=== PATIENT | male | born 1945 | race Two or more races ===

== ENCOUNTER 2023-05-23 22:14 | Inpatient (IN) | payer OTHER ==
[~2023-05-23] VITALS: Ht 167.6 cm; Wt 72.0 kg
[2023-05-23 23:02] LABS: Basophils # (auto) 0 10 ^3/uL (0-0.2); Eosinophils # (auto) 0 10 ^3/uL (0-0.8); Hemoglobin 14.1 g/dL (13.5-17.5); Lymphocytes # (auto) 0.2 10 ^3/uL (0.4-5.4); Mean Corpuscular Hemoglobin 25.9 pg (28.0-32.0); Monocytes # (auto) 0.2 10 ^3/uL (0-1.3); Red Blood Cells 5.44 10^6/uL (4.5-5.90)
[2023-05-23 23:15] VITALS: PULSE 90; RESP 33; O2SAT 93
[2023-05-23 23:15] LABS: Basophils % (auto) 0.3 % (0.0-2.0); Eosinophils % (auto) 0.2 % (0.0-7.0); Hematocrit 43.8 % (41.0-53.0); Lymphocytes % (auto) 2.2 % (10.0-50.0); Mean Corpuscular Hgb Conc. 32.2 g/dL (32.0-36.0); Mean Corpuscular Volume 80.5 fL (80.0-100.0); Monocytes % (auto) 2.5 % (0.0-12.0); Neutrophils # (auto) 8.1 10 ^3/uL (1.6-8.6); Neutrophils % (auto) 94.8 % (37.0-80.0); Red Cell Distribution Width 15.5 % (11.8-14.3); White Blood Cell 8.5 10^3/uL (4.4-10.8)
[2023-05-23 23:16] LABS: INR 1.07 (0.9-1.15); Partial Thromboplastin Time 25.5 SEC (24.5-34.5)
[2023-05-23 23:20] LABS: Albumin 3.5 g/dL (3.4-5.0); Calcium 8.9 mg/dL (8.5-10.1); Potassium 4.1 mmol/L (3.5-5.1)
[2023-05-23 23:28] LABS: BUN/Creatinine Ratio 15.4 (10.0-20.0); Bilirubin, Total 2.2 mg/dL (0.2-1.0); Total Protein 6.1 g/dL (6.4-8.2)
[2023-05-23 23:31] LABS: Lactic Acid w/Reflex 2.2 mmol/L (0.4-2.0)
[2023-05-24] MEDS ORDERED: VANCOMYCIN 1GM/250ML 250 ML IV ONE ×2 (00:30→17:00)
[2023-05-24] MEDS ORDERED: PIPERACILLIN-TAZOB 3.375GM 100 ML IV ONE (00:30)
[2023-05-24] MEDS ORDERED: SODIUM CHLORIDE 0.9% IV ONE (00:45)
[2023-05-24 03:38] LABS: Urine Bacteria FEW /hpf (None Seen); Urine Blood Negative /uL (Negative); Urine Specific Gravity 1.009 (1.001-1.035); Urine WBC 12 /hpf (0 - 3)
[2023-05-24 08:53] VITALS: PULSE 94; RESP 33; O2SAT 95
[2023-05-24] MEDS: PIPERACILLIN-TAZOB 3.375GM 100 ML IV SCH ×2 (12:45→22:20)
[2023-05-24] MEDS ORDERED: ACETYLCYSTEINE 200MG/ML IV SOL 10,900 MG in D5W 5% 250 ML IV ONE (12:45)
[2023-05-24] MEDS ORDERED: LACTATED RINGER'S 1,000 ML IV ONE (12:45)
[2023-05-24] MEDS ORDERED: ONDANSETRON HCL 4 MG/2 ML VIAL IV PRN (13:30)
[2023-05-24] MEDS ORDERED: DOCUSATE SOD 100 MG CAP PO PRN (13:30)
[2023-05-24] MEDS ORDERED: ACETYLCYSTEINE 200MG/ML IV SOL 3,600 MG in D5W 5% 500 ML IV ONE (13:45)
[2023-05-24] MEDS: SODIUM CHLOR 0.9% PF (SALINE LOCK) 10ML VIAL/SYR IV SCH ×2 (14:00→22:20)
[2023-05-24 14:16] LABS: Sodium Urine 19 mmol/L (40-220)
[2023-05-24 14:18] LABS: Creatinine, Urine 56 mg/dL (30.0-125.0)
[2023-05-24] MEDS ORDERED: VANCOMYCIN PER PHARMACY 0 MG IV SCH (14:45)
[2023-05-24 14:49] LABS: Basophils # (auto) 0 10 ^3/uL (0-0.2); Basophils % (auto) 0.2 % (0.0-2.0); Eosinophils # (auto) 0.1 10 ^3/uL (0-0.8); Eosinophils % (auto) 0.6 % (0.0-7.0); Hematocrit 40.3 % (41.0-53.0); Hemoglobin 12.8 g/dL (13.5-17.5); Lymphocytes # (auto) 0.8 10 ^3/uL (0.4-5.4); Lymphocytes % (auto) 7.2 % (10.0-50.0); Mean Corpuscular Hemoglobin 25.5 pg (28.0-32.0); Mean Corpuscular Hgb Conc. 31.8 g/dL (32.0-36.0); Monocytes # (auto) 0.7 10 ^3/uL (0-1.3); Monocytes % (auto) 6.1 % (0.0-12.0); Neutrophils # (auto) 9.4 10 ^3/uL (1.6-8.6); Neutrophils % (auto) 85.9 % (37.0-80.0); Red Blood Cells 5.04 10^6/uL (4.5-5.90); Red Cell Distribution Width 16.2 % (11.8-14.3)
[2023-05-24 15:06] LABS: Salicylate < 1.7 mg/dL (2.8-20.0)
[2023-05-24 15:18] LABS: Acetaminophen < 2.0 ug/mL (10-30)
[2023-05-24] MEDS ORDERED: ACETYLCYSTEINE 200MG/ML IV SOL 7,300 MG in D5W 5% 1,000 ML IV SCH ×2 (17:45→18:30)
[2023-05-24 19:15] VITALS: PULSE 67; RESP 16; O2SAT 99
[2023-05-24] MEDS: HYDROmorphone HCL 2 MG/ML VL/or syr IV PRN (19:55)
[2023-05-24 22:00] VITALS: BP 149/76; PULSE 73; RESP 12; O2SAT 96
[2023-05-24 22:06] VITALS: BP 158/81; PULSE 74; RESP 20; TEMP 97.8; TEMP 98.1; O2SAT 96
[2023-05-25] VITALS (33 sets, daily range): BP systolic 132–172; BP diastolic 71–128; PULSE 67–103; RESP 10–22; TEMP 97.3–98.3; O2SAT 85–98
[2023-05-25 04:59] LABS: Basophils # (auto) 0 10 ^3/uL (0-0.2); Eosinophils # (auto) 0.2 10 ^3/uL (0-0.8); Eosinophils % (auto) 2.2 % (0.0-7.0); Hematocrit 39.1 % (41.0-53.0); Hemoglobin 12.7 g/dL (13.5-17.5); Lymphocytes # (auto) 0.5 10 ^3/uL (0.4-5.4); Lymphocytes % (auto) 5.5 % (10.0-50.0); Mean Corpuscular Hgb Conc. 32.4 g/dL (32.0-36.0); Monocytes # (auto) 0.8 10 ^3/uL (0-1.3); Monocytes % (auto) 7.9 % (0.0-12.0); Neutrophils # (auto) 8.1 10 ^3/uL (1.6-8.6); Red Blood Cells 4.88 10^6/uL (4.5-5.90)
[2023-05-25 05:01] LABS: Basophils % (auto) 0.3 % (0.0-2.0); Mean Corpuscular Volume 80.2 fL (80.0-100.0); Neutrophils % (auto) 84.1 % (37.0-80.0); Nucleated Red Blood Cells % 0.1 %; Red Cell Distribution Width 15.6 % (11.8-14.3); White Blood Cell 9.6 10^3/uL (4.4-10.8)
[2023-05-25] MEDS: SODIUM CHLOR 0.9% PF (SALINE LOCK) 10ML VIAL/SYR IV SCH ×3 (05:06→22:05)
[2023-05-25 05:11] LABS: Albumin 2.6 g/dL (3.4-5.0); Potassium 4.1 mmol/L (3.5-5.1)
[2023-05-25 05:15] LABS: Bilirubin, Total 1.7 mg/dL (0.2-1.0); Total Protein 5.3 g/dL (6.4-8.2)
[2023-05-25] MEDS: PIPERACILLIN-TAZOB 3.375GM 100 ML IV SCH ×2 (08:36→22:13)
[2023-05-25] MEDS ORDERED: ENAL1TAB42 PO (09:37)
[2023-05-25] MEDS ORDERED: IBUP-1456 PO (09:37)
[2023-05-25] MEDS ORDERED: TAMS0.4C36 PO (09:37)
[2023-05-25] MEDS ORDERED: ASPI-543 PO (09:37)
[2023-05-25] MEDS ORDERED: AMLO1TAB22 PO (09:37)
[2023-05-25] MEDS ORDERED: ATOR20TA50 PO (09:37)
[2023-05-25] MEDS ORDERED: GABA-1250 PO (09:37)
[2023-05-25] MEDS ORDERED: amLODIPine BESYLATE 5 MG TAB PO ONE (14:15)
[2023-05-25] MEDS ORDERED: hydrALAZINE HCL 20 MG/ML VL IV PRN (16:15)
[2023-05-25] MEDS: TAMSULOSIN HYDROCHLORIDE 0.4 MG CAP PO SCH (16:57)
[2023-05-25 17:15] LABS: Alcohol, Urine < 3.0 mg/dL (0-10); Amphetamine Screen, Urine NEGATIVE (NEGATIVE); Barbiturate Scree,Urine NEGATIVE (NEGATIVE); Benzodiazephine Screen, Urine NEGATIVE (NEGATIVE); Cannabinoid Screen, Urine NEGATIVE (NEGATIVE); Cocaine Screen, Urine NEGATIVE (NEGATIVE); Opiate Scree,Urine NEGATIVE (NEGATIVE); Phencyclidine Screen, Urine NEGATIVE (NEGATIVE)
[2023-05-25 18:07] LABS: Folate (Folic Acid) 22.02 ng/mL (5.38-24)
[2023-05-25] MEDS: ENALAPRIL MALEATE 10 MG TAB PO SCH (22:00)
[2023-05-26] VITALS (39 sets, daily range): BP systolic 139–152; BP diastolic 76–93; PULSE 67–101; RESP 8–29; TEMP 97.7–98.8; O2SAT 89–99
[2023-05-26] MEDS: HYDROmorphone HCL 2 MG/ML VL/or syr IV PRN ×2 (00:24→22:13)
[2023-05-26 05:12] LABS: Albumin 3.1 g/dL (3.4-5.0); Calcium 9.4 mg/dL (8.5-10.1)
[2023-05-26 05:17] LABS: BUN/Creatinine Ratio 12.5 (10.0-20.0)
[2023-05-26 05:29] LABS: Basophils # (auto) 0 10 ^3/uL (0-0.2); Basophils % (auto) 0.4 % (0.0-2.0); Eosinophils # (auto) 0.2 10 ^3/uL (0-0.8); Eosinophils % (auto) 2.2 % (0.0-7.0); Hematocrit 39.1 % (41.0-53.0); Hemoglobin 12.8 g/dL (13.5-17.5); Lymphocytes # (auto) 0.8 10 ^3/uL (0.4-5.4); Mean Corpuscular Hemoglobin 25.7 pg (28.0-32.0); Mean Corpuscular Hgb Conc. 32.8 g/dL (32.0-36.0); Mean Corpuscular Volume 78.4 fL (80.0-100.0); Monocytes # (auto) 0.6 10 ^3/uL (0-1.3); Neutrophils # (auto) 6.6 10 ^3/uL (1.6-8.6); Neutrophils % (auto) 80.4 % (37.0-80.0); Red Blood Cells 4.99 10^6/uL (4.5-5.90); Red Cell Distribution Width 15.4 % (11.8-14.3); White Blood Cell 8.2 10^3/uL (4.4-10.8)
[2023-05-26] MEDS: SODIUM CHLOR 0.9% PF (SALINE LOCK) 10ML VIAL/SYR IV SCH ×3 (06:00→22:14)
[2023-05-26] MEDS: amLODIPine BESYLATE 5 MG TAB PO SCH (08:32)
[2023-05-26] MEDS: PIPERACILLIN-TAZOB 3.375GM 100 ML IV SCH ×2 (08:32→22:15)
[2023-05-26] MEDS: ENALAPRIL MALEATE 10 MG TAB PO SCH ×2 (08:33→22:15)
[2023-05-26] MEDS ORDERED: GABA-1251 PO (15:00)
[2023-05-26] MEDS: TAMSULOSIN HYDROCHLORIDE 0.4 MG CAP PO SCH (18:08)
[2023-05-27 05:00] VITALS: BP 158/82; PULSE 77; RESP 12; TEMP 98.1; O2SAT 94
[2023-05-27] MEDS: SODIUM CHLOR 0.9% PF (SALINE LOCK) 10ML VIAL/SYR IV SCH ×2 (06:10→13:47)
[2023-05-27 07:19] LABS: Albumin 2.8 g/dL (3.4-5.0)
[2023-05-27 07:31] LABS: Bilirubin, Direct 0.4 mg/dL (0-0.2); Bilirubin, Total 0.8 mg/dL (0.2-1.0); Total Protein 6.1 g/dL (6.4-8.2)
[2023-05-27 08:00] VITALS: PULSE 65; PULSE 84; RESP 17; O2SAT 92
[2023-05-27 08:06] LABS: RPR Non Reactive (Non Reactive)
[2023-05-27 09:00] VITALS: BP 132/76; PULSE 84; RESP 17; TEMP 97.7; O2SAT 92
[2023-05-27 09:46] LABS: Hepatitis B Surface Antibody Negative (Negative)
[2023-05-27 10:13] LABS: Hepatitis A Total Antibody Positive (Negative)
[2023-05-27] MEDS: PIPERACILLIN-TAZOB 3.375GM 100 ML IV SCH (10:26)
[2023-05-27] MEDS: amLODIPine BESYLATE 5 MG TAB PO SCH (10:27)
[2023-05-27] MEDS: ENALAPRIL MALEATE 10 MG TAB PO SCH (10:27)
[2023-05-27 11:30] LABS: Hepatitis A Ab IgM Negative
[2023-05-27 11:31] LABS: Hepatitis B Core IgM Negative; Hepatitis C Antibody Negative (Negative)
== END 2023-05-27 14:31 | disposition home or self-care (01) | DRG 442 ==
LOC: ER 22:20 → TELE 05-24 13:36 → DOU IN ICU 05-24 21:46 → TELE-WESTW 05-26 13:59
PROVIDERS: ADMIT Hospitalist; ATTEND Hospitalist
DX: K72.90 Hepatic failure, unspecified without coma (principal); N17.9 Acute kidney failure, unspecified; R78.81 Bacteremia; Z85.72 Personal history of non-Hodgkin lymphomas; K80.20 Calculus of gallbladder without cholecystitis without obstruction; I10 Essential (primary) hypertension; T39.395A Adverse effect of other nonsteroidal anti-inflammatory drugs [NSAID], initial encounter; R60.9 Edema, unspecified; Z96.653 Presence of artificial knee joint, bilateral; R74.01 Elevation of levels of liver transaminase levels; B96.20 Unspecified Escherichia coli [E. coli] as the cause of diseases classified elsewhere; E78.5 Hyperlipidemia, unspecified; R74.8 Abnormal levels of other serum enzymes; E11.9 Type 2 diabetes mellitus without complications; Y92.89 Other specified places as the place of occurrence of the external cause; Z92.21 Personal history of antineoplastic chemotherapy; Z87.891 Personal history of nicotine dependence
CPT/HCPCS: 36415; 70551; 71045; 74178; 76705; 78226; 80053; 80074; 80076; 80202; 80307; 80329; 81001; 82550; 82570; 82607; 82728; 82746; 83605; 83690; 83880; 84300; 84484; 85025; 85610; 85730; 86038; 86592; 86704; 86706; 86708; 86803; 87040; 87077; 87081; 87186; 87340; 93306; 96365; 96366; 96367; 97110; 97116; 97163; G0378; J2405; J2543; J7060

== ENCOUNTER 2024-04-13 12:23 | Inpatient (IN) | payer OTHER ==
[~2024-04-13] VITALS: Ht 170.2 cm; Wt 71.8 kg
[~2024-04-13 12:23] MED LIST: AMLO1TAB22 PO; ATOR20TA PO; CEFD300C2 PO; ENAL1TAB48 PO; IBUP-1456 PO; PREG50CA80 PO; PROC10TA6 PO; TAMS0.4C36 PO
[2024-04-13 13:30] VITALS: PULSE 88; RESP 26; O2SAT 94
[2024-04-13] MEDS: FUROSEMIDE 100 MG/10ML VIAL IV ONE (13:55)
[2024-04-13 14:12] LABS: Basophils # (auto) 0.1 10 ^3/uL (0-0.2); Basophils % (auto) 0.7 % (0.0-2.0); Eosinophils # (auto) 0.2 10 ^3/uL (0-0.8); Eosinophils % (auto) 1.9 % (0.0-7.0); Hematocrit 35.1 % (41.0-53.0); Hemoglobin 11.1 g/dL (13.5-17.5); Lymphocytes # (auto) 0.7 10 ^3/uL (0.4-5.4); Lymphocytes % (auto) 6.9 % (10.0-50.0); Mean Corpuscular Hemoglobin 27.1 pg (28.0-32.0); Mean Corpuscular Hgb Conc. 31.6 g/dL (32.0-36.0); Mean Corpuscular Volume 85.7 fL (80.0-100.0); Monocytes # (auto) 0.3 10 ^3/uL (0-1.3); Monocytes % (auto) 2.8 % (0.0-12.0); Neutrophils # (auto) 8.3 10 ^3/uL (1.6-8.6); Neutrophils % (auto) 87.7 % (37.0-80.0); Red Blood Cells 4.09 10^6/uL (4.5-5.90); Red Cell Distribution Width 16.9 % (11.8-14.3); White Blood Cell 9.5 10^3/uL (4.4-10.8)
[2024-04-13 14:26] LABS: Urine Bacteria None Seen /hpf (None Seen)
[2024-04-13 14:30] LABS: Alanine Aminotransferase 14 U/L (7-40); Alkaline Phosphatase 104 U/L (46-116); Anion Gap 2 (5-15); Aspartate Aminotransferase 12 U/L (13-40); BUN/Creatinine Ratio 13.6 (10.0-20.0); Blood Urea Nitrogen 11 mg/dL (9-23); Calcium 9.2 mg/dL (8.5-10.1); Carbon Dioxide 35 mmol/L (20-30); Chloride 104 mmol/L (98-107); Glucose 109 mg/dL (74-106); Potassium 4.1 mmol/L (3.5-5.1); Sodium 141 mmol/L (136-145)
[2024-04-13 14:31] LABS: Albumin 3.8 g/dL (3.2-4.8); Bilirubin, Total 0.7 mg/dL (0.2-1.0); Total Protein 5.3 g/dL (5.7-8.2)
[2024-04-13 14:49] LABS: Urine Blood Negative /uL (Negative); Urine Clarity Clear (Clear); Urine Color Yellow (Yellow); Urine Protein, UAD Negative (Negative); Urine Specific Gravity 1.008 (1.001-1.035); Urine Urobilinogen Normal (Negative); Urine WBC <1 /hpf (0 - 3); Urine pH 6.5 (5.0-9.0)
[2024-04-13] MEDS ORDERED: MORPHINE SULFATE INJ 2 MG/ml SYRG IV PRN ×2 (15:30)
[2024-04-13] MEDS ORDERED: ONDANSETRON HCL 4 MG/2 ML VIAL IV PRN (15:30)
[2024-04-13] MEDS ORDERED: ACETAMINOPHEN 325 MG TAB PO PRN (15:30)
[2024-04-13] MEDS ORDERED: NITROGLYCERIN 0.4 MG SL TAB SL PRN (15:30)
[2024-04-13] MEDS ORDERED: HYDROcodone-ACET 5/325MG TAB PO PRN (15:30)
[2024-04-13] MEDS ORDERED: DOCUSATE SOD 100 MG CAP PO PRN (15:30)
[2024-04-13] MEDS ORDERED: FURO20TA3 PO (17:44)
[2024-04-13] MEDS ORDERED: CARV3.1240 PO (17:44)
[2024-04-13] MEDS ORDERED: SACU1TAB PO (17:44)
[2024-04-13] MEDS: TAMSULOSIN HYDROCHLORIDE 0.4 MG CAP PO ONE (18:48)
[2024-04-13 20:13] VITALS: PULSE 97; RESP 22; O2SAT 94
[2024-04-13 22:37] VITALS: PULSE 90
[2024-04-14] VITALS (7 sets, daily range): BP systolic 112–140; BP diastolic 73–81; PULSE 75–98; RESP 15–19; TEMP 97.6–98.3; O2SAT 91–98
[2024-04-14] MEDS: FUROSEMIDE 40 MG/4 ML VIAL IV SCH (05:17)
[2024-04-14 08:37] LABS: Basophils # (auto) 0 10 ^3/uL (0-0.2); Basophils % (auto) 0.8 % (0.0-2.0); Eosinophils # (auto) 0.1 10 ^3/uL (0-0.8); Hemoglobin 10.9 g/dL (13.5-17.5); Lymphocytes # (auto) 0.6 10 ^3/uL (0.4-5.4); Lymphocytes % (auto) 9.6 % (10.0-50.0); Mean Corpuscular Hemoglobin 27.4 pg (28.0-32.0); Mean Corpuscular Hgb Conc. 32.2 g/dL (32.0-36.0); Mean Corpuscular Volume 85.1 fL (80.0-100.0); Monocytes # (auto) 0.3 10 ^3/uL (0-1.3); Monocytes % (auto) 4.9 % (0.0-12.0); Neutrophils % (auto) 82.7 % (37.0-80.0); Red Blood Cells 3.99 10^6/uL (4.5-5.90); Red Cell Distribution Width 16.5 % (11.8-14.3)
[2024-04-14 08:56] LABS: Alanine Aminotransferase 13 U/L (7-40); Albumin 3.7 g/dL (3.2-4.8); Alkaline Phosphatase 99 U/L (46-116); Anion Gap 3 (5-15); Aspartate Aminotransferase 11 U/L (13-40); BUN/Creatinine Ratio 12.8 (10.0-20.0); Bilirubin, Total 0.9 mg/dL (0.2-1.0); Blood Urea Nitrogen 12 mg/dL (9-23); Calcium 9.3 mg/dL (8.5-10.1); Carbon Dioxide 38 mmol/L (20-30); Chloride 101 mmol/L (98-107); Glucose 99 mg/dL (74-106); Potassium 3.7 mmol/L (3.5-5.1); Sodium 142 mmol/L (136-145); Total Protein 5.1 g/dL (5.7-8.2)
[2024-04-14] MEDS: ENOXAPARIN SOD 40 MG/0.4 ML SYRINGE SC SCH (10:00)
[2024-04-14] MEDS: metOLazone 5 MG TAB PO ONE (14:08)
[2024-04-14 15:18] LABS: INR 1.09 (0.9-1.15); Prothrombin Time 11.5 sec (9.3-11.8)
[2024-04-14] MEDS: TAMSULOSIN HYDROCHLORIDE 0.4 MG CAP PO SCH (17:13)
[2024-04-14] MEDS: Ensure HIGH Protein Vanilla 8oz Bottle PO SCH (18:00)
[2024-04-14] MEDS: SACUBITRIL-VALSARTAN 24mg/26mg TAB PO SCH (21:48)
[2024-04-14] MEDS: CARVEDILOL 3.125 MG TAB PO SCH (22:00)
[2024-04-15 01:00] VITALS: BP 123/76; PULSE 80; RESP 19; TEMP 97.8; O2SAT 94
[2024-04-15 05:00] VITALS: BP 128/73; PULSE 80; RESP 18; TEMP 97.4; O2SAT 97
[2024-04-15 08:30] VITALS: PULSE 78; PULSE 82; RESP 20
[2024-04-15 08:43] VITALS: BP 136/88; PULSE 85; RESP 19; TEMP 97.8; O2SAT 95
[2024-04-15 13:00] VITALS: BP 106/71; PULSE 69; RESP 20; TEMP 98.5; O2SAT 93
== END 2024-04-15 18:30 | disposition home health service (06) | DRG 189 ==
LOC: ER 12:25 → TELE-CENTR 15:33 → TELE 15:33 → TELE-CENTR 22:51
PROVIDERS: ADMIT Internal Medicine; ATTEND Internal Medicine
DX: J96.21 Acute and chronic respiratory failure with hypoxia (principal); I50.23 Acute on chronic systolic (congestive) heart failure; I11.0 Hypertensive heart disease with heart failure; E78.5 Hyperlipidemia, unspecified; G62.9 Polyneuropathy, unspecified; J44.9 Chronic obstructive pulmonary disease, unspecified; N40.0 Benign prostatic hyperplasia without lower urinary tract symptoms; Z96.659 Presence of unspecified artificial knee joint; Z87.891 Personal history of nicotine dependence; Z85.72 Personal history of non-Hodgkin lymphomas; Z79.899 Other long term (current) drug therapy
CPT/HCPCS: 36415; 71045; 80053; 81001; 83605; 83880; 84484; 85025; 85610; 93005; 96374; 97163; G0378

== ENCOUNTER 2025-02-19 02:46 | Inpatient (IN) | payer OTHER ==
[~2025-02-19] VITALS: Ht 167.6 cm; Wt 79.2 kg
[2025-02-19] VITALS (20 sets, daily range): BP systolic 91–122; BP diastolic 50–69; PULSE 60–88; RESP 10–24; TEMP 98–100.3; O2SAT 92–100
[~2025-02-19 02:46] MED LIST changes: +CARV3.1240 PO; -CEFD300C2 PO; +FURO1TAB77 PO; +FURO20TA3 PO; +IBUP-1454 PO; -IBUP-1456 PO; +OMEP1CAP70 PO; -PROC10TA6 PO; +SACU1TAB PO; -TAMS0.4C36 PO; +TAMS0.4C39 PO
--- NOTE | 2025-02-19 03:07 | ED.PDOC ---
History of Present Illness HPI Comments 79 y/o M, with a history of Hodgkin lymphoma, cardiomyopathy w/EF 35%, CHF, BPH, HLD, HTN, and peripheral neuropathy, is BIBA for c/o generalized weakness and ALOC. Per EMS report, patient's spouse called after finding patient altered, this morning, after endorsing on being weak for the past 2 days alongside a productive cough. Sputum was stated to be yellow in appearance. On scene, patient was found with a initial SpO2 in the 80's range, while on 2LPM O2 concentrator, with diminished lung sounds, tachycardic, and hypotensive, with a systolic pressure in the low 80's. En route, patient was given breathing treatment and IV fluids. He has no reported chest pain, fever, chills, bloody sp utum, or other associated symptoms at this time. Time Seen by MD: 02:54 Primary Care Provider: NATE Reviewed Notes: Nurses Notes, Capacity Analyst Notes, Medications, Allergies Allergies: Coded Allergies: NO KNOWN ALLERGIES (Unverified , 05/23/23) Home Meds Reported Medications Furosemide (Furosemide) 20 Mg Tab, 1 TAB PO DAILY 04/13/24 Carvedilol (Carvedilol) 3.125 Mg Tab, 1 TAB PO Q12HR 04/13/24 Sacubitril-Valsartan (Entresto 24-26 mg) 1 Tab Tab, 1 TAB PO Q12HR 04/13/24 Atorvastatin Calcium (Lipitor) 20 Mg Tab, 1 TAB PO DAILY 01/28/24 Pregabalin (Pregabalin) 50 Mg Cap, 1 CAP PO BID 01/28/24 Enalapril Maleate (Enalapril Maleate) 20 Mg Tab, 1 TAB PO BID 01/28/24 Amlodipine Besylate (Amlodipine Besylate) 5 Mg Tab, 10 MG PO DAILY for 30 Days, MG 05/25/23 Tamsulosin Hcl (Tamsulosin Hcl) 0.4 Mg Cap, 2 CAP PO HS 05/25/23 Information Source: Patient, Emergency Med Personnel Mode of Arrival: EMS Severity: Moderate Timing: Days Duration: Since onset Prehospital treatment: 12 Lead EKG, Accucheck, Breathing Tx, Band Instrument Maker, IVF, Oxygen Past Medical History PAST MEDICAL HISTORY: Cancer (Hodgkin lymphoma), CHF, High Lipids, HTN Past Medical History (Other): cardiomyopathy w/EF 35% peripheral neuropathy BPH 2LPM O2 use Surgical History: Denies all surgeries Family History Family History: Reviewed,noncontributory to illness Social History Smoker: Non-Smoker Alcohol: Denies ETOH Use Drugs: Denies Drug Use Lives In: Home All Other Systems: Reviewed and Negative (as per HPI) Physical Exam General Appearance: No Apparent Distress, Thin, Other (elderly, frail appearing ) HEENT: Normal ENT Inspection, Pharynx Normal, TMs Normal Neck: Full Range of Motion, Non-Tender, Normal, Normal Inspection Respiratory: Chest Non-Tender, Lungs Clear, No Accessory Muscle Use, No Respiratory Distress, Normal Breath Sounds Cardiovascular: No Edema, No JVD, No Murmur, No Gallop, Normal Peripheral Pulses, Regular Rate/Rhythm Breast Exam: Deferred Gastrointestinal: No Organomegaly, Non Tender, No Pulsatile Mass, Normal Bowel Sounds, Soft Genitalia: Deferred Pelvic: Deferred Rectal: Deferred Extremities: No calf tenderness, Normal capillary refill, Normal inspection, Normal range of motion, Non-tender, No pedal edema Musculoskeletal : Apperance: Normal Neurologic: Alert, label paster II-XII nml as Tested, No Motor Deficits, Normal Affect, Normal Mood, No Sensory Deficits Cerebellar Function: Normal Reflexes: Normal Skin: Dry, Normal Color, Warm Lymphatic: No Adenopathy Was a procedure done? Was a procedure done?: No EKG EKG : Pulse Rate (adult): 102 Neal: Normal Cardiac Rhythm: ST Hypertrophy: None ST: Normal Comments left-anterior fascicular block Differential Dx Considerations may include: Viral syndrome, electrolyte imbalance, dehydration, URI, UTI, encephalopathy, among others X-Ray, Labs, Meds, VS Vital Signs Date Time Temp Pulse Resp B/P (MAP) Pulse Ox O2 Delivery O2 Flow Rate FiO2 02/19/25 03:07 102 02/19/25 02:57 100.3 104 26 98/60 (73) 97 100.3 02/19/25 02:51 102 Lab Test 02/19/25 03:00 Range/Units White Blood Count 4.4 4.4-10.8 10^3/uL Red Blood Count 4.27 L 4.5-5.90 10^6/uL Hemoglobin 11.5 L 13.5-17.5 g/dL Hematocrit 34.9 L 41.0-53.0 % Mean Corpuscular Volume 81.8 80.0-100.0 fL Mean Corpuscular Hemoglobin 27.0 L 28.0-32.0 pg Mean Corpuscular Hemoglobin Concent 33.0 32.0-36.0 g/dL Red Cell Distribution Width 15.5 H 11.8-14.3 % Platelet Count 83 L 140-450 10^3/uL Mean Platelet Volume 8.6 6.9-10.8 fL Neutrophils (%) (Auto) 73.1 37.0-80.0 % Lymphocytes (%) (Auto) 15.8 10.0-50.0 % Monocytes (%) (Auto) 10.9 0.0-12.0 % Eosinophils (%) (Auto) 0.1 0.0-7.0 % Basophils (%) (Auto) 0.1 0.0-2.0 % Neutrophils # (Auto) 3.3 1.6-8.6 10 ^3/uL Lymphocytes # (Auto) 0.7 0.4-5.4 10 ^3/uL Monocytes # (Auto) 0.5 0-1.3 10 ^3/uL Eosinophils # (Auto) 0 0-0.8 10 ^3/uL Basophils # (Auto) 0 0-0.2 10 ^3/uL Nucleated Red Blood Cells 0.0 % Prothrombin Time 11.0 9.3-11.8 sec Prothrombin Time INR 1.04 0.9-1.15 Activated Partial Thromboplast Time 33.2 24.5-34.5 SEC Sodium Level 137 136-145 mmol/L Potassium Level 3.3 L 3.5-5.1 mmol/L Chloride Level 100 98-107 mmol/L Carbon Dioxide Level 24 20-31 mmol/L Anion Gap 13 5-15 Blood Urea Nitrogen 62 H 9-23 mg/dL Creatinine 3.44 H 0.700-1.30 mg/dL Glomerular Filtration Rate Calc 17 >90 mL/min BUN/Creatinine Ratio 18.0 10.0-20.0 Serum Glucose 255 H 74-106 mg/dL Lactic Acid Level 1.5 0.4-2.0 mmol/L Calcium Level 8.7 8.7-10.4 mg/dL Total Bilirubin 1.0 0.2-1.0 mg/dL Aspartate Amino Transferase (AST) 13 13-40 U/L Alanine Aminotransferase (ALT) 12 7-40 U/L Alkaline Phosphatase 79 46-116 U/L B-Type Natriuretic Peptide 377.03 0-100 pg/mL Total Protein 5.7 5.7-8.2 g/dL Albumin 3.9 3.2-4.8 g/dL Current Medications Medications (Trade) Dose Ordered Sig/Naomi Route Start Time Stop Time Status Last Admin Sodium Chloride 1,000 ml @ 1,000 mls/hr Q1H ONCE IV 02/19/25 03:15 02/19/25 04:14 DC 02/19/25 03:15 [place] [id number] Ph: [phone] DIAGNOSTIC IMAGING Diagnostic Imaging Report : [id number] Signed PATIENT: VASILE DENISE ACCT: [id number] UNIT: [id number] : 1945 LOC: ER ROOM / BED: / AGE / SEX: 79 / M ADM STATUS: REG ER SERVICE 0301 ORDERING PHYSICIAN: ANTONELLA BRADLEY MD PROCEDURE(s): CXRP - CHEST PORTABLE REASON: SOB ORDER NUMBER(s): [id number], ACCESSION NUMBER(s): [id number] CHEST RADIOGRAPH Indication: SOB Technique: Single frontal view of the chest was obtained Comparison: XY CHEST PORTABLE on DOS: 04/13/24 FINDINGS: Lines and Tubes: Right infusion catheter is present with its tip terminating in the superior vena cava. Lungs: Right upper lobe consolidation noted. Pleura: No effusion. No pneumothorax. Cardiomediastinal contours: Cardiomegaly. Bones: No acute osseous abnormality. IMPRESSION: 1. Right upper lobe consolidation which may reflect pneumonia or mass. ATED BY: ROOPA LAUGHLIN MD DICTATED DATE/TIME: 02/19/25436 SIGNED BY: ROOPA LAUGHLIN MD SIGNED DATE/TIME: 02/19/25436 CC: Time of 1ST Reevaluation: 03:24 Reevaluation 1ST: Unchanged Patient Education/Counseling: Diagnosis, Treatment Family Education/Counseling: No Family Present Sepsis focused exam: focus exam completed (In the initial resuscitation at least 30 mL/kg of IV crystalloid fluid was NOT given within the first 3 hr due to concerns of fluid overload), time: (399) Sepsis Sepsis Reasesment Focused Exam Sepsis focused exam: focus exam completed (In the initial resuscitation at least 30 mL/kg of IV crystalloid fluid was NOT given within the first 3 hr due to concerns of fluid overload), time: (399) Departure 1 Departure Time of Disposition: 04:51 Impression: Primary Impression: Acute kidney injury Additional Impressions: History of cancer Pneumonia Disposition: ADMITTED INPATIENT Admit to: Med Surg Condition: Guarded Discharged With: Self Comments 79-year-old Male with Dyspnea and Weakness Chief Complaint: Generalized weakness and shortness of breath History of Present Illness: Patient is a 79-year-old male with history of Hodgkin's lymphoma, cardiomyopat hy, CHF, and hypertension who presents to the ED via EMS with complaints of generalized weakness and dyspnea with exertion for the past two days. EMS found patient to be hypoxic with oxygen saturation of 80% on room air, requiring supplemental oxygen support. Despite the hypoxia, lung examination was noted to be clear. Review of Systems: Constitutional: Positive for generalized weakness Respiratory: Positive for dyspnea on exertion All other systems reviewed and negative Medications: No current medications documented Allergies: No known allergies documented Past Medical History: 1. Hodgkin's lymphoma 2. Cardiomyopathy 3. Congestive Heart Failure 4. Hypertension Vital Signs: O2 Saturation: 80% on room air (per EMS) Lab Results: CBC: - Hemoglobin/Hematocrit: 11.5/35 - Platelets: 83 Chemistry: - Potassium: 3.3 - BUN/Creatinine: 62/3.44 - Glucose: 255 Cardiac Markers: - BNP: 377 Imaging and Other Relevant Results: Chest X-ray: Left upper lobe infiltrate Medical Decision Making: Summary Statement: 79-year-old male with history of Hodgkin's lymphoma and cardiac disease presenting with hypoxia, weakness, and laboratory evidence of acute kidney injury, found to have left upper lobe pneumonia. Problem List: 1. Community-acquired pneumonia 2. Acute kidney injury 3. Hypoxia 4. Thrombocytopenia 5. Hypokalemia 6. Hyperglycemia Differential Diagnosis: Community-acquired pneumonia, CHF exacerbation, lymphoma progression, sepsis, acute kidney injury ED Course: Patient received IV fluids, was started on Rocephin and azithromycin for pneumonia coverage, and maintained on supplemental oxygen. Decision made to admit for further management. Assessment and Plan: 1. Community-acquired Pneumonia - Left upper lobe infiltrate on CXR with associated hypoxia - Continue Rocephin and azithromycin - Supplemental oxygen as needed 2. Acute Kidney Injury - Likely multifactorial, possibly due to infection and volume depletion - Continue IV fluids - Monitor urine output and serial creatinine 3. Thrombocytopenia - May be related to underlying lymphoma history - Will need monitoring during admission 4. Disposition: Admit to medical floor for continued management Billing Information: ICD-10: J18.9 - Pneumonia, unspecified organism ICD-10: N17.9 - Acute kidney failure, unspecified ICD-10: R06.02 - Shortness of breath ICD-10: C81.90 - Hodgkin lymphoma, unspecified, unspecified site Critical Care Note Critical Care Time?: Yes (35 min-critical care time only) Critical care comment: Total critical care time: Approximately 36 minutes Due to a high probability of clinically significant, life threatening deterioration, the patient required my highest level of preparedness to intervene emergently and I personally spent this critical care time directly and personally managing the patient. This critical care time included obtaining a history; examining the patient; pulse oximetry; ordering and review of studies; arranging urgent treatment with development of a management plan; evaluation of patient's response to treatment; frequent reassessment; and, discussions with other providers. This critical care time was performed to assess and manage the high probability of imminent, life-threatening deterioration that could result in multi-organ failure. It was exclusive of separately billable procedures and treating other patients. Stability Stability form required: No Heart Score Heart Score: Heart Score Response (Comments) Value History Moderate Suspicious 1 EKG Normal 0 Age >65 2 Risk Factors >3 or Hx ASHD 2 Troponin Normal limit 0 Total 5 I personally scribed for ANTONELLA BRADLEY MD ([email or web address]) on 02/19/25 at 03:07. Electronically submitted by Ricky Gong ([email or web address]). I personally scribed for ANTONELLA BRADLEY MD ([email or web address]) on 02/19/25 at 04:55. Electronically submitted by Ricky Gong ([email or web address]). ANTONELLA BRADLEY MD Feb 19, 2025 03:07
[2025-02-19] MEDS: SODIUM CHLORIDE 0.9% 1,000 ML IV ONE ×2 (03:15→16:45)
[2025-02-19 03:28] LABS: Basophils # (auto) 0 10 ^3/uL (0-0.2); Basophils % (auto) 0.1 % (0.0-2.0); Eosinophils # (auto) 0 10 ^3/uL (0-0.8); Eosinophils % (auto) 0.1 % (0.0-7.0); Hematocrit 34.9 % (41.0-53.0); Hemoglobin 11.5 g/dL (13.5-17.5); Lymphocytes # (auto) 0.7 10 ^3/uL (0.4-5.4); Lymphocytes % (auto) 15.8 % (10.0-50.0); Mean Corpuscular Volume 81.8 fL (80.0-100.0); Monocytes # (auto) 0.5 10 ^3/uL (0-1.3); Monocytes % (auto) 10.9 % (0.0-12.0); Neutrophils # (auto) 3.3 10 ^3/uL (1.6-8.6); Neutrophils % (auto) 73.1 % (37.0-80.0); Platelet Count (auto) 83 10^3/uL (140-450); Red Blood Cells 4.27 10^6/uL (4.5-5.90); Red Cell Distribution Width 15.5 % (11.8-14.3); White Blood Cell 4.4 10^3/uL (4.4-10.8)
[2025-02-19 03:45] LABS: Alanine Aminotransferase 12 U/L (7-40); Albumin 3.9 g/dL (3.2-4.8); Alkaline Phosphatase 79 U/L (46-116); Anion Gap 13 (5-15); Aspartate Aminotransferase 13 U/L (13-40); Calcium 8.7 mg/dL (8.7-10.4); Carbon Dioxide 24 mmol/L (20-31); Chloride 100 mmol/L (98-107); Sodium 137 mmol/L (136-145); Total Protein 5.7 g/dL (5.7-8.2)
[2025-02-19 03:47] LABS: Blood Urea Nitrogen 62 mg/dL (9-23); Glucose 255 mg/dL (74-106); Potassium 3.3 mmol/L (3.5-5.1)
[2025-02-19 03:57] LABS: INR 1.04 (0.9-1.15); Partial Thromboplastin Time 33.2 SEC (24.5-34.5)
--- NOTE | 2025-02-19 04:40 | DVH ---
CHEST RADIOGRAPH Indication: SOB Technique: Single frontal view of the chest was obtained Comparison: XY CHEST PORTABLE on DOS: 04/13/24 FINDINGS: Lines and Tubes: Right infusion catheter is present with its tip terminating in the superior vena cav a. Lungs: Right upper lobe consolidation noted. Pleura: No effusion. No pneumothorax. Cardiomediastinal contours: Cardiomegaly. Bones: No acute osseous abnormality. IMPRESSION: 1. Right upper lobe consolidation which may reflect pneumonia or mass.
[2025-02-19] MEDS: AZITHROMYCIN 500MG/ 250ML 250 ML IV ONE (05:05)
[2025-02-19] MEDS: cefTRIAXone 1GM/50ML D5W 50 ML IV ONE (05:05)
--- NOTE | 2025-02-19 05:44 | ECG ---
[facility] Test Date: 2025-02-19 Test Time: 02:51:02 Pat Name: VASILE DENISE Department: ED Room: 0231T Gender: M Manager Restaurant: ED : 1945 Requested By: ANTONELLA BRADLEY Order Number: [id number] Reading MD: Ran Mattson Measurements Intervals [place] Rate: 102 P: 44 TN: 176 QRS: -68 QRSD: 114 T: 90 QT: 311 QTc: 406 Interpretive Statements Sinus tachycardia Left anterior fascicular block Abnormal R-wave progression, late transition Nonspecific T abnormalities, lateral leads Electronically Signed On 02-21-2025 17:07:18 PDT by Ran Mattson Please click the below link to view image of tracing.
[2025-02-19] MEDS ORDERED: HYDROcodone-ACET 5/325MG TAB PO PRN (05:45)
[2025-02-19] MEDS ORDERED: ACETAMINOPHEN 325 MG TAB PO PRN (05:45)
[2025-02-19] MEDS ORDERED: SODIUM CHLORIDE 0.9% 1,000 ML IV ONE (05:45)
[2025-02-19] MEDS ORDERED: ONDANSETRON HCL 4 MG/2 ML VIAL IV PRN (05:45)
--- NOTE | 2025-02-19 06:09 | DVHHP2 ---
Admitting Diagnosis: Pneumonia, Hypoxia, CHOCO, Hypotension History of Present Illness History Source: Patient Exam Limitations: No limitations HPI Mr. Apolinar Gutierres is a 79 yo male, with a history of Hodgkin lymphoma, cardiomyopathy w/EF 35%, CHF, BPH, HLD, HTN, and peripheral neuropathy, who presents with a chief complaint of generalized weakness and ALOC. Patient reports he doesn't remember being short of breath but was told his 02 saturations were "low". Patient reports his spouse called after finding patient altered, this morning, after endorsing on being weak for the past 2 days alongside a productive cough. Sputum was stated to be yellow in appearance. Per ED notes on scene, patient was found with a initial SpO2 in the 80's range, while on 2LPM O2 concentrator, with diminished lung sounds, tachycardic, and hypotensive, with a systolic pressure in the low 80's. Patient will be admitted for further evaluation and treatment. Home Meds Reported Medications Omeprazole (Gnp Omeprazole) 20 Mg Tab, 1 TAB PO DAILY, #90 TAB 1 Refill 02/19/25 Sacubitril-Valsartan (Entresto 24-26 mg) 1 Tab Tab, 1 TAB PO BID, TAB 02/19/25 Ibuprofen (Ibuprofen) 600 Mg Tab, 600 MG PO BID, MG 0 Refills 02/19/25 Furosemide (Furosemide 80 mg) 1 Tab Tab, 1 TAB PO DAILY, TAB 02/19/25 Carvedilol (Carvedilol) 3.125 Mg Tab, 1 TAB PO Q12HR 04/13/24 Sacubitril-Valsartan (Entresto 24-26 mg) 1 Tab Tab, 1 TAB PO Q12HR 04/13/24 Atorvastatin Calcium (Lipitor) 20 Mg Tab, 1 TAB PO DAILY 01/28/24 Pregabalin (Pregabalin) 50 Mg Cap, 1 CAP PO BID 01/28/24 Enalapril Maleate (Enalapril Maleate) 20 Mg Tab, 1 TAB PO BID 01/28/24 Amlodipine Besylate (Amlodipine Besylate) 5 Mg Tab, 10 MG PO DAILY for 30 Days, MG 05/25/23 Tamsulosin Hcl (Tamsulosin Hcl) 0.4 Mg Cap, 2 CAP PO HS 05/25/23 Discontinued Reported Medications Furosemide (Furosemide) 20 Mg Tab, 1 TAB PO DAILY 04/13/24 Past Medical History Cardiac: CHF, HTN, Hyperlipidemia, Cardiomyopathy (EF 35% ) Hemotology/Oncology: Other (non hodgkins lymphoma ) Renal/: Benign prostatic enlarg. Patient Family History: Patient reports no known family medical history. Smoker: No Hx (Negative) Alocohol: None Drugs: None Lives with: With family Domestic Violence: Neg Review of Systems Constitutional: No symptom reported Ears, Nose, & Throat: No symptom reported Eyes: No symptom reported Pulmonary/Respiratory: Dyspnea, Cough Cardiovascular: No symptom reported Gastrointestinal: No symptom reported Genitourinary: No symptom reported Musculoskeletal: No symptom reported Skin: No symptom reported Psychiatric: No symptom reported Endocrine: No symptom reported Hemotologic/Lymphatic: No symptom reported H&P Exam Vital Signs Vital Signs Date Time Temp Pulse Resp B/P (MAP) Pulse Ox O2 Delivery O2 Flow Rate FiO2 02/19/25 05:48 86 20 91/54 (66) 02/19/25 03:35 90 02/19/25 02:57 100.3 100.3 General Appeara: Well developed, Well nourished, Normal Appearance Head Exam: Normal inspection Neck Exam: Normal inspection, Non-tender, Normal alignment Eye Exam: bilateral eye Normal inspection, bilateral eye PERRL, bilateral eye EOMI Ear Exam: bilateral ear Auricle normal Nasal Exam: Normal inspection Mouth: Normal Inspection Pulmonary/Respiratory: Normal inspection, Chest non-tender, Wheezing, Other (dimminished lung sounds bases) Peripheral Pulses: 2+ dorsalis pedis (R), 2+ dorsalis pedis (L), 2+ Radial (R), 2+ Radial (L) Abdominal Exam: Normal bowel sounds, Soft Rectal Exam: Deferred Back Exam: Normal inspection Legs: bilateral leg non-tender, bilateral leg normal inspection, bilateral leg normal range of motion PHYSICIAN/INTERNIST Exam: Normal hearing, Normal speech, PERRL Motor/Sensory: Normal sensory function DTR Exam: 2+ Tricep (R), 2+ Tricep (L), 2+ Knee (R), 2+ Knee (L) Neuro/Mental St: Alert, Oriented Appearance: Appropriate appearance, Appropriate insight Eye contact/ Speech: Cooperative, Good eye contact, Normal speech Thoughts/Psych: Normal thought pattern Skin Exam: Normal inspection, Normal color, Warm/dry Labs/Xrays Labs Test 02/19/25 03:00 Range/Units White Blood Count 4.4 4.4-10.8 10^3/uL Red Blood Count 4.27 L 4.5-5.90 10^6/uL Hemoglobin 11.5 L 13.5-17.5 g/dL Hematocrit 34.9 L 41.0-53.0 % Mean Corpuscular Volume 81.8 80.0-100.0 fL Mean Corpuscular Hemoglobin 27.0 L 28.0-32.0 pg Mean Corpuscular Hemoglobin Concent 33.0 32.0-36.0 g/dL Red Cell Distribution Width 15.5 H 11.8-14.3 % Platelet Count 83 L 140-450 10^3/uL Mean Platelet Volume 8.6 6.9-10.8 fL Neutrophils (%) (Auto) 73.1 37.0-80.0 % Lymphocytes (%) (Auto) 15.8 10.0-50.0 % Monocytes (%) (Auto) 10.9 0.0-12.0 % Eosinophils (%) (Auto) 0.1 0.0-7.0 % Basophils (%) (Auto) 0.1 0.0-2.0 % Neutrophils # (Auto) 3.3 1.6-8.6 10 ^3/uL Lymphocytes # (Auto) 0.7 0.4-5.4 10 ^3/uL Monocytes # (Auto) 0.5 0-1.3 10 ^3/uL Eosinophils # (Auto) 0 0-0.8 10 ^3/uL Basophils # (Auto) 0 0-0.2 10 ^3/uL Nucleated Red Blood Cells 0.0 % Prothrombin Time 11.0 9.3-11.8 sec Prothrombin Time INR 1.04 0.9-1.15 Activated Partial Thromboplast Time 33.2 24.5-34.5 SEC Sodium Level 137 136-145 mmol/L Potassium Level 3.3 L 3.5-5.1 mmol/L Chloride Level 100 98-107 mmol/L Carbon Dioxide Level 24 20-31 mmol/L Anion Gap 13 5-15 Blood Urea Nitrogen 62 H 9-23 mg/dL Creatinine 3.44 H 0.700-1.30 mg/dL Glomerular Filtration Rate Calc 17 >90 mL/min BUN/Creatinine Ratio 18.0 10.0-20.0 Serum Glucose 255 H 74-106 mg/dL Lactic Acid Level 1.5 0.4-2.0 mmol/L Calcium Level 8.7 8.7-10.4 mg/dL Total Bilirubin 1.0 0.2-1.0 mg/dL Aspartate Amino Transferase (AST) 13 13-40 U/L Alanine Aminotransferase (ALT) 12 7-40 U/L Alkaline Phosphatase 79 46-116 U/L B-Type Natriuretic Peptide 377.03 0-100 pg/mL Total Protein 5.7 5.7-8.2 g/dL Albumin 3.9 3.2-4.8 g/dL Assessment/Plan Problem List: (1) Pneumonia (2) Hypoxia (3) Dyspnea (4) Acute kidney injury (5) History of cancer Plan This is a 79 yo male with known history of Non Hodgkin Lymphoma, Cardiomyopathy EF 35%, CHF, HLD, HTN, peripheral neuropathy, BPH, COPD who presents to the hospital with ALOC which has now resolved and dyspnea with a cough, Patient was found to have 1. Acute respiratory failure with hypoxia 2. Pneumonia 3. Hypotension 4. CHF 5. CHOCO Plan Admit ALDO Pulmonology consultation, IV antibiotics, Duo Neb tx , IV steroids Incentive Spirometry Sputum culture, COVID 19, Influenza A&B Nephrology consultation, Renal Ultrasound Monitor BMP, CBC, GI ppx Protonix DVT ppx Heparin SC Discussed all above with patient who verbalizes agreement and understanding of care plan. All questions were answered. Discussed with supervising MD. Plan discussed with: Patient, Other Code Visit Code Visit Total Time (mins): 45 Additional Comments Additional Comments Additional Comments 9-year-old male with a known history of Hodgkin lymphoma, status post chemotherapy, status post radiation, cardiomyopathy with EF 35%, congestive heart failure, BPH, hypertension, peripheral neuropathy initially presented to the hospital with generalized weakness altered mental status patient was found to have 1. Acute hypoxic respiratory failure requiring 5 L of oxygen 2. Multifocal pneumonia 3. Lymphoma status post chemotherapy and radiation 4. Left lung mass status post radiation 5. Acute encephalopathy currently resolved 6. Congestive heart failure with the EF of 35% -IV antibiotics, infectious disease consultation, KERON BOURGEOIS Feb 19, 2025 06:09 SOPHIA MILLAN MD Feb 19, 2025 15:56
[2025-02-19] MEDS: IPRATROPIUM BROM 0.5 MG/2.5ML INH SOL NEB SCH (06:16)
[2025-02-19 06:50] LABS: Base Excess -1.1 mmol/L (-2.0-3.0)
--- NOTE | 2025-02-19 07:03 | DVH ---
EXAM: US Retroperitoneal Limited, Renal CLINICAL INDICATION: blanca TECHNIQUE: Real-time limited ultrasound of the retroperitoneum with image documentation. COMPARISON: None FINDINGS: RIGHT KIDNEY: Unremarkable. No stones. No hydronephrosis. Right kidney measures 9.8 cm. LEFT KIDNEY: Left kidney measures up to 11.0 cm. No stones. No hydronephrosis. BLADDER: Normal-appearing urinary bladder. Prevoid volume 174 cc. OTHER FINDINGS: . . IMPRESSION: No acute findings in the retroperitoneum.
[2025-02-19 07:40] LABS: COVID19 ANTIGEN SOFIA FIA NEGATIVE (NEGATIVE)
[2025-02-19 07:41] LABS: Rapid Influenza A Negative (Negative); Rapid Influenza B Negative (Negative)
[2025-02-19 10:00] LABS: Magnesium 1.8 mg/dL (1.6-2.6)
[2025-02-19] MEDS: HEPARIN SODIUM (PORCINE) 5000 UNITS/ML 1ML VIAL SC SCH (10:00)
[2025-02-19 10:02] LABS: Phosphorus 2.9 mg/dL (2.4-5.1)
[2025-02-19] MEDS: PANTOPRAZOLE 40 MG/10 ML VIAL INJ IV SCH (10:30)
[2025-02-19] MEDS: methylPREDNISolone SOD SUCC 40 MG/ML VL IV SCH (10:30)
--- NOTE | 2025-02-19 10:49 | DVHINCON2 ---
Date of service: Feb 19, [address] grajeda Reason for Consultation resp failure History of Present Illness HPI pt 79 yo male, h/o lymphoma, undergoing chemotherapy. well-known to me/my office pt. Pt has been gradually declining with gen weakness and increasing shortness of breath. recent admission (earlier this month to this hospital with fluid overload/pneumonia), when he had CT chest showing left lung mass/infiltrate and bilateral pleural effusions. In ER pt on 12 lpm 02, in distress, vs stable, no drips. Sharon status Home Meds Reported Medications Furosemide (Furosemide) 20 Mg Tab, 1 TAB PO DAILY 04/13/24 Carvedilol (Carvedilol) 3.125 Mg Tab, 1 TAB PO Q12HR 04/13/24 Sacubitril-Valsartan (Entresto 24-26 mg) 1 Tab Tab, 1 TAB PO Q12HR 04/13/24 Atorvastatin Calcium (Lipitor) 20 Mg Tab, 1 TAB PO DAILY 01/28/24 Pregabalin (Pregabalin) 50 Mg Cap, 1 CAP PO BID 01/28/24 Enalapril Maleate (Enalapril Maleate) 20 Mg Tab, 1 TAB PO BID 01/28/24 Amlodipine Besylate (Amlodipine Besylate) 5 Mg Tab, 10 MG PO DAILY for 30 Days, MG 05/25/23 Tamsulosin Hcl (Tamsulosin Hcl) 0.4 Mg Cap, 2 CAP PO HS 05/25/23 Past Medical History Cardiac: CAD, HTN Pulmonary: No pertinent Hx Central Nervous System: No pertinent Hx GI: No pertinent Hx Hemotology/Oncology: Anemia NOS Psychiatric: No pertinent Hx Musculoskeletal: No pertinent Hx Rheumotologic: No pertinent Hx Infectious Disease: No peritnent Hx ENT: No pertinent Hx Renal/: No pertinent Hx Endocrine: No pertinent Hx Dermatology: No pertinent Hx Past Surgical History: No pertinent Hx Family History: No pertinent Hx Patient Family History: Patient reports no known family medical history. Review of Systems Constitutional: Malaise, Weakness, Weight loss Ears, Nose, & Throat: No symptom reported Eyes: No symptom reported Pulmonary/Respiratory: Dyspnea, Cough Cardiovascular: No symptom reported Gastrointestinal: No symptom reported Genitourinary: No symptom reported Musculoskeletal: No symptom reported Skin: No symptom reported Psychiatric: No symptom reported Endocrine: No symptom reported Hemotologic/Lymphatic: Lymph node enlargement H&P Exam Vital Signs Vital Signs Date Time Temp Pulse Resp B/P (MAP) Pulse Ox O2 Delivery O2 Flow Rate FiO2 02/19/25 09:00 98.0 69 20 126/49 (74) 95 98.0 02/19/25 07:58 10.0 60 02/19/25 06:16 Mask General Appeara: Mild distress Head Exam: Normal inspection Neck Exam: Normal inspection Eye Exam: bilateral eye Normal inspection, bilateral eye PERRL Ear Exam: bilateral ear Auricle normal, bilateral ear Canal normal Nasal Exam: Normal inspection Mouth: Normal Inspection Pulmonary/Respiratory: Normal inspection, Normal breath sounds Cardiovascular/Chest: Normal inspection Peripheral Pulses: 4+ carotid (R), 4+ carotid (L) Abdominal Exam: Normal bowel sounds, Soft Labs/Xrays Labs Test 02/19/25 06:50 02/19/25 06:46 02/19/25 03:00 Range/Units Influenza Type A Antigen Negative Negative Influenza Type B Antigen Negative Negative SARS-CoV-2 Antigen (Rapid) Negative NEGATIVE Blood Gas Specimen Type Arterial Blood Gas Sample Site Right radial Blood Gas Patient Temperature 37.0 Arterial Blood Date Drawn [id number] Arterial Blood pH 7.410 7.350-7.450 Arterial Blood Partial Pressure CO2 37.6 35.0-48.0 mmHg Arterial Blood Partial Pressure O2 74.8 L 83.0-108.0 mmHg Arterial Blood HCO3 23.3 21.0-28.0 mmol/L Arterial Blood Oxygen Saturation 93.8 L 94.0-98.0 % Arterial Blood Base Excess -1.1 -2.0-3.0 mmol/L Arterial Blood Oxyhemoglobin 93.0 L 94.0-98.0 % Arterial Blood Carboxyhemoglobin 0.6 0.5-1.5 % Arterial Blood Methemoglobin 0.3 0.0-1.5 % Hilario Test Yes Blood Gas Total Hemoglobin 11.50 L 13.5-17.5 g/dL Blood Gas Liter Flow 10.00 Blood Gas Modality Mask - simple FiO2 % 60.0 White Blood Count 4.4 4.4-10.8 10^3/uL Red Blood Count 4.27 L 4.5-5.90 10^6/uL Hemoglobin 11.5 L 13.5-17.5 g/dL Hematocrit 34.9 L 41.0-53.0 % Mean Corpuscular Volume 81.8 80.0-100.0 fL Mean Corpuscular Hemoglobin 27.0 L 28.0-32.0 pg Mean Corpuscular Hemoglobin Concent 33.0 32.0-36.0 g/dL Red Cell Distribution Width 15.5 H 11.8-14.3 % Platelet Count 83 L 140-450 10^3/uL Mean Platelet Volume 8.6 6.9-10.8 fL Neutrophils (%) (Auto) 73.1 37.0-80.0 % Lymphocytes (%) (Auto) 15.8 10.0-50.0 % Monocytes (%) (Auto) 10.9 0.0-12.0 % Eosinophils (%) (Auto) 0.1 0.0-7.0 % Basophils (%) (Auto) 0.1 0.0-2.0 % Neutrophils # (Auto) 3.3 1.6-8.6 10 ^3/uL Lymphocytes # (Auto) 0.7 0.4-5.4 10 ^3/uL Monocytes # (Auto) 0.5 0-1.3 10 ^3/uL Eosinophils # (Auto) 0 0-0.8 10 ^3/uL Basophils # (Auto) 0 0-0.2 10 ^3/uL Nucleated Red Blood Cells 0.0 % Prothrombin Time 11.0 9.3-11.8 sec Prothrombin Time INR 1.04 0.9-1.15 Activated Partial Thromboplast Time 33.2 24.5-34.5 SEC Sodium Level 137 136-145 mmol/L Potassium Level 3.3 L 3.5-5.1 mmol/L Chloride Level 100 98-107 mmol/L Carbon Dioxide Level 24 20-31 mmol/L Anion Gap 13 5-15 Blood Urea Nitrogen 62 H 9-23 mg/dL Creatinine 3.44 H 0.700-1.30 mg/dL Glomerular Filtration Rate Calc 17 >90 mL/min BUN/Creatinine Ratio 18.0 10.0-20.0 Serum Glucose 255 H 74-106 mg/dL Hemoglobin A1c 8.0 H <5.7 % A1C Lactic Acid Level 1.5 0.4-2.0 mmol/L Calcium Level 8.7 8.7-10.4 mg/dL Phosphorus Level 2.9 2.4-5.1 mg/dL Magnesium Level 1.8 1.6-2.6 mg/dL Total Bilirubin 1.0 0.2-1.0 mg/dL Aspartate Amino Transferase (AST) 13 13-40 U/L Alanine Aminotransferase (ALT) 12 7-40 U/L Alkaline Phosphatase 79 46-116 U/L B-Type Natriuretic Peptide 377.03 0-100 pg/mL Total Protein 5.7 5.7-8.2 g/dL Albumin 3.9 3.2-4.8 g/dL Assessment/Plan Plan acute hypoxemic resp failure pneumonia pleuarl effusions lymphoma pt seen and examined in the ER on 12 lpm abg 7.41/c02=37.6, P02=[address] effusions small/moderate left lung infiltrate labs reviewed BUN/Cr elevated us kidneys Normal management plan 02 as needed diurese will obtain US chest and consider thoracentesis to facilitate 02 weaning bronchodilators/abx/steroids gi and dvt proph remains full code crit care time 35 min Plan discussed with: Patient ANDREIA HAWLEY MD Feb 19, 2025 10:49
--- NOTE | 2025-02-19 11:46 | DVH ---
Procedure: CT CHEST WITHOUT CONTRAST Reason for study/Clinical History: rule ot right upper lung mass Comparison Study: CT chest dated 01/27/2024, chest radiograph dated 02/19/2025 TECHNIQUE: Multidetector CT of the chest was performed from the lung apices to the upper abdomen with out the use of intravenous contract. Axial, coronal and sagittal multiplanar reformats were performed . Radiation Dose Information: CT Dose: CTDI volume is 10.83 mGy. Dose-length product is 359.23 mGy*cm The dose indicators for CT are the volume Computed Tomography (CT) Dose Index (CTDIvol) and the Dose Length Product (DLP), and are measured in units of mGy and mGy-cm, respectively. These indicators are not patient dose, but values generated from the CT scanner acquisition factors. The report includes radiation exposure data for exposures received during this examination. FINDINGS: Lower neck: Unremarkable. Lungs: Multifocal airspace disease, [id number]. Heart/Vascular Structures: Cardiomegaly. Coronary artery calcifications. Vascular calcifications of t he aorta. Lymph Nodes: No adenopathy Pleura: No pleural effusion or significant pneumothorax. Musculoskeletal: No acute osseous abnormality. Soft tissues: Right chest port in satisfactory position. Upper abdomen: Limited portions of the upper abdomen are unremarkable. IMPRESSION: Multifocal airspace disease, [id number]. Recommend repeat imaging after treatment to ensure complete resolution. Radiation optimization: All CT scans at this facility use at least one of these dose optimization nikki hniques: automated exposure control mA and/or kV adjustment per patient size (includes targeted exam s where dose is matched to clinical indication) or iterative reconstruction.
[2025-02-19 11:48] LABS: % Iron Saturation 8.4 % (20-55)
[2025-02-19] MEDS: POTASSIUM CHLORIDE 20 MEQ, LIDOCAINE 1% (LOCAL ANESTH.) 2 ML in SODIUM CHL 0.9% 100 ML IV ONE (12:00)
[2025-02-19] MEDS ORDERED: OMEP20TA PO (15:32)
[2025-02-19 15:36] LABS: Urine Bacteria None Seen /hpf (None Seen)
[2025-02-19 16:00] LABS: Urine Blood 1+ /uL (Negative); Urine Clarity Turbid (Clear); Urine Color Yellow (Yellow); Urine Protein, UAD 1+ (Negative); Urine Specific Gravity 1.018 (1.001-1.035); Urine Squamous Epithelial Cell None Seen /hpf (<5); Urine Urobilinogen Normal (Negative); Urine WBC 2 /HPF (0-3)
[2025-02-19 16:05] LABS: Protein, Urine 118.2 mg/dL (1-14)
[2025-02-19 16:08] LABS: Creatinine, Urine 158.26 mg/dL (30.0-125.0); Urine Protein/Creatinine Ratio 0.75
--- NOTE | 2025-02-19 16:34 | DVHINCON2 ---
Date of service: Feb 19, [address] Montesinos Reason for Consultation multifocal pneumonia History of Present Illness Mr. Apolinar Gutierres is a 79 yo male, with a history of Hodgkin lymphoma, cardiomyopathy w/EF 35%, CHF, BPH, HLD, HTN, and peripheral neuropathy, who presents with a chief complaint of generalized weakness and ALOC. c/o productive cough Per ED notes, patient was found with a initial SpO2 in the 80's range, while on 2LPM O2 concentrator, with diminished lung sounds, tachycardic, and hypotensive, with a systolic pressure in the low 80's. Patient also had lung mass for which she underwent radiation therapy as per reports Pulmonary is on board. According to the notes patient is progressively getting worse Family History: FH: heart attack G8 FATHER (HEART ATTACK), , Age: 40's - 50, Cause: FH: heart attack FHx: dementia G8 MOTHER, , Age: 96 Allergies: Coded Allergies: NO KNOWN ALLERGIES (Unverified , 05/23/23) Home Meds Reported Medications Omeprazole (Gnp Omeprazole) 20 Mg Tab, 1 TAB PO DAILY, #90 TAB 1 Refill 02/19/25 Sacubitril-Valsartan (Entresto 24-26 mg) 1 Tab Tab, 1 TAB PO BID, TAB 02/19/25 Ibuprofen (Ibuprofen) 600 Mg Tab, 600 MG PO BID, MG 0 Refills 02/19/25 Furosemide (Furosemide 80 mg) 1 Tab Tab, 1 TAB PO DAILY, TAB 02/19/25 Carvedilol (Carvedilol) 3.125 Mg Tab, 1 TAB PO Q12HR 04/13/24 Sacubitril-Valsartan (Entresto 24-26 mg) 1 Tab Tab, 1 TAB PO Q12HR 04/13/24 Atorvastatin Calcium (Lipitor) 20 Mg Tab, 1 TAB PO DAILY 01/28/24 Pregabalin (Pregabalin) 50 Mg Cap, 1 CAP PO BID 01/28/24 Enalapril Maleate (Enalapril Maleate) 20 Mg Tab, 1 TAB PO BID 01/28/24 Amlodipine Besylate (Amlodipine Besylate) 5 Mg Tab, 10 MG PO DAILY for 30 Days, MG 05/25/23 Tamsulosin Hcl (Tamsulosin Hcl) 0.4 Mg Cap, 2 CAP PO HS 05/25/23 Discontinued Reported Medications Furosemide (Furosemide) 20 Mg Tab, 1 TAB PO DAILY 04/13/24 Current Medications Current Medications Medications (Trade) Dose Ordered Sig/Naomi Route PRN Reason Start Time Stop Time Status Last Admin Azithromycin 250 ml @ 125 mls/hr Q24H IV 02/20/25 05:00 Ceftriaxone Sodium 50 ml @ 100 mls/hr Q24H IV 02/20/25 05:00 Methylprednisolone Sodium Succinate (Solu Medrol) 40 mg BID IV 02/19/25 10:00 02/19/25 10:30 Ipratropium [place] (Atrovent Medneb) 0.5 mg Q6HR NEB 02/19/25 06:00 02/19/25 12:54 Ondansetron HCl (Zofran) 4 mg Q6HPRN PRN IV NAUSEA / VOMITING 02/19/25 05:45 Pantoprazole Sodium (Protonix) 40 mg DAILY IV 02/19/25 10:00 02/19/25 10:30 Acetaminophen/ Hydrocodone Bitart ([place] 5/325MG Tab) 1 tab Q6HPRN PRN PO PAIN SCALE 4 THRU 6 02/19/25 05:45 Acetaminophen (Tylenol Tablet) 650 mg Q6HPRN PRN PO PAIN SCALE 1-3 OR TEMP>100.4 02/19/25 05:45 Heparin Sodium (Porcine) 5,000 units BID SC 02/19/25 10:00 02/19/25 15:51 DC Review of Systems Limited due to acute hypoxic respiratory failure Patient is on oxygen mask Vital Signs Vital Signs Date Time Temp Pulse Resp B/P (MAP) Pulse Ox O2 Delivery O2 Flow Rate FiO2 02/19/25 16:10 70 02/19/25 15:00 15 114/69 (84) 92 02/19/25 12:54 Simple Mask* 10 99 02/19/25 12:00 98.4 98.4 Physical Exam General alert and oriented, mild distress HEENT: Atraumatic Neck: No swelling Lungs: Equal air entry and clear to auscultation Cardiovascular: S2 heard no murmur Abdomen: Soft nontender, no organomegaly, nondistended Neuro: Alert and oriented, no focal deficit Psych: Normal mood and affect Labs/Diagnostic Data Labs Test 02/19/25 15:11 02/19/25 06:50 02/19/25 06:46 02/19/25 03:13 Range/Units Urine Color Yellow Yellow Urine Clarity Turbid H Clear Urine pH 5.0 5.0-9.0 Urine Specific Lyndon 1.018 1.001-1.035 Urine Protein 1+ H Negative Urine Ketones Negative Negative Urine Blood 1+ H Negative /uL Urine Nitrite Negative Negative Urine Bilirubin Negative Negative Urine Urobilinogen Normal Negative mg/dL Urine Leukocyte Esterase Negative Negative /uL Urine RBC 21 0 - 3 /hpf Urine Microscopic WBC 2 0-3 /HPF Urine Squamous Epithelial Cells None seen <5 /hpf Urine Bacteria None seen None Seen /hpf Urine Glucose Normal Normal mg/dL Influenza Type A Antigen Negative Negative Influenza Type B Antigen Negative Negative SARS-CoV-2 Antigen (Rapid) Negative NEGATIVE Blood Gas Specimen Type Arterial Blood Gas Sample Site Right radial Blood Gas Patient Temperature 37.0 Arterial Blood Date Drawn [id number] Arterial Blood pH 7.410 7.350-7.450 Arterial Blood Partial Pressure CO2 37.6 35.0-48.0 mmHg Arterial Blood Partial Pressure O2 74.8 L 83.0-108.0 mmHg Arterial Blood HCO3 23.3 21.0-28.0 mmol/L Arterial Blood Oxygen Saturation 93.8 L 94.0-98.0 % Arterial Blood Base Excess -1.1 -2.0-3.0 mmol/L Arterial Blood Oxyhemoglobin 93.0 L 94.0-98.0 % Arterial Blood Carboxyhemoglobin 0.6 0.5-1.5 % Arterial Blood Methemoglobin 0.3 0.0-1.5 % Hilario Test Yes Blood Gas Total Hemoglobin 11.50 L 13.5-17.5 g/dL Blood Gas Liter Flow 10.00 Blood Gas Modality Mask - simple FiO2 % 60.0 Iron Level 17 L 65-175 ug/dL Total Iron Binding Capacity 203 L 250-425 ug/dL Percent Iron Saturation 8.4 L 20-55 % Vitamin D 25-Hydroxy 11.0 L 30.0-100 ng/mL Test 02/19/25 03:00 02/19/25 00:00 Range/Units White Blood Count 4.4 4.4-10.8 10^3/uL Red Blood Count 4.27 L 4.5-5.90 10^6/uL Hemoglobin 11.5 L 13.5-17.5 g/dL Hematocrit 34.9 L 41.0-53.0 % Mean Corpuscular Volume 81.8 80.0-100.0 fL Mean Corpuscular Hemoglobin 27.0 L 28.0-32.0 pg Mean Corpuscular Hemoglobin Concent 33.0 32.0-36.0 g/dL Red Cell Distribution Width 15.5 H 11.8-14.3 % Platelet Count 83 L 140-450 10^3/uL Mean Platelet Volume 8.6 6.9-10.8 fL Neutrophils (%) (Auto) 73.1 37.0-80.0 % Lymphocytes (%) (Auto) 15.8 10.0-50.0 % Monocytes (%) (Auto) 10.9 0.0-12.0 % Eosinophils (%) (Auto) 0.1 0.0-7.0 % Basophils (%) (Auto) 0.1 0.0-2.0 % Neutrophils # (Auto) 3.3 1.6-8.6 10 ^3/uL Lymphocytes # (Auto) 0.7 0.4-5.4 10 ^3/uL Monocytes # (Auto) 0.5 0-1.3 10 ^3/uL Eosinophils # (Auto) 0 0-0.8 10 ^3/uL Basophils # (Auto) 0 0-0.2 10 ^3/uL Nucleated Red Blood Cells 0.0 % Prothrombin Time 11.0 9.3-11.8 sec Prothrombin Time INR 1.04 0.9-1.15 Activated Partial Thromboplast Time 33.2 24.5-34.5 SEC Sodium Level 137 136-145 mmol/L Potassium Level 3.3 L 3.5-5.1 mmol/L Chloride Level 100 98-107 mmol/L Carbon Dioxide Level 24 20-31 mmol/L Anion Gap 13 5-15 Blood Urea Nitrogen 62 H 9-23 mg/dL Creatinine 3.44 H 0.700-1.30 mg/dL Glomerular Filtration Rate Calc 17 >90 mL/min BUN/Creatinine Ratio 18.0 10.0-20.0 Serum Glucose 255 H 74-106 mg/dL Hemoglobin A1c 8.0 H <5.7 % A1C Lactic Acid Level 1.5 0.4-2.0 mmol/L Calcium Level 8.7 8.7-10.4 mg/dL Phosphorus Level 2.9 2.4-5.1 mg/dL Magnesium Level 1.8 1.6-2.6 mg/dL Total Bilirubin 1.0 0.2-1.0 mg/dL Aspartate Amino Transferase (AST) 13 13-40 U/L Alanine Aminotransferase (ALT) 12 7-40 U/L Alkaline Phosphatase 79 46-116 U/L B-Type Natriuretic Peptide 377.03 0-100 pg/mL Total Protein 5.7 5.7-8.2 g/dL Albumin 3.9 3.2-4.8 g/dL Parathyroid Hormone (Intact) 234.7 H 18.4-80.1 pg/mL Urine Creatinine 158.26 H 30.0-125.0 mg/dL Urine Protein/Creatinine Ratio 0.75 Urine Total Protein 118.2 H 1-14 mg/dL Assessment A 79-year-old male Multifocal pneumonia Radiation pneumonitis Acute hypoxic respiratory failure Pulmonary edema CHOCO Congestive heart failure with EF of 35% Lymphoma on chemotherapy Lung mass status post radiation therapy Recommendations Possible differential diagnosis is bacterial or viral pneumonia versus radiation pneumonitis or pulmonary edema due to low EF Recommend MRSA screen, sputum culture Also rule out viral etiology by screening for COVID, flu and RSV Patient currently has high oxygen requirement Empirically cover with Ceftriaoxone and azithromycin will wait on Vancomycin, he has CHOCO ( CHOCO + Low EF) could result in pulmonary edema consider lasix Reviewed CT chest personally which does shows infiltrate on both side of the lungs Pulmonary is on board Prognosis is guarded Thank you for consultation Plan discussed with Dr. Montesinos Plan discussed with: Patient, Other EDUARDA FORD MD Feb 19, 2025 16:25
--- NOTE | 2025-02-19 17:11 | DVHCONRES ---
Date Seen: Feb 19, 2025 Resident Creating Document: DIVINE DURAN RESIDENT Referring Physician Reason for Consultation CHOCO History of Present Illness This is a 79-year-old male with a past medical history of Hodking lymphoma, heart failure with reduced ejection fraction (EF 35%), benign prostatic hyperplasia (BPH), hyperlipidemia, hypertension, peripheral neuropathy The patient presented to the hospital with generalized weakness and altered level of consciousness for the past two days. Symptoms were associated with shortness of breath. On admission, oxygen saturation was in the 80s%, and systolic blood pressure was also in the 80s mmHg. Currently, the patient denies acute symptoms and reports feeling improved. He is now on a simple face mask with 6L/min oxygen, maintaining an oxygen saturation of 95%.Initial labs revealed chronic anemia (hemoglobin 11.5 g/dL), thrombocytopenia (platelet count 83 x10?/L), and evidence of acute kidney injury Mild hypokalemia was corrected. A1c was elevated at 8%, consistent with a diagnosis of type 2 diabetes mellitus (current glucose 255 mg/dL). Pulmonary exam revealed crackles, and chest imaging showed pulmonary edema. A bladder scan is pending to evaluate for urinary retention, and a Mejía catheter will be placed if post-void residual is >300 mL. Management includes cautious fluid administration due to pulmonary edema risk, renal diet, and continued monitoring of renal function. Past Medical History Hodking lymphoma, heart failure with reduced ejection fraction (EF 35%), benign prostatic hyperplasia (BPH), hyperlipidemia, hypertension, peripheral neuropathy Family History: FH: heart attack G8 FATHER (HEART ATTACK), , Age: 40's - 50, Cause: FH: heart attack FHx: dementia G8 MOTHER, , Age: 96 Allergies: Coded Allergies: NO KNOWN ALLERGIES (Unverified , 05/23/23) Home Meds Reported Medications Omeprazole (Gnp Omeprazole) 20 Mg Tab, 1 TAB PO DAILY, #90 TAB 1 Refill 02/19/25 Sacubitril-Valsartan (Entresto 24-26 mg) 1 Tab Tab, 1 TAB PO BID, TAB 02/19/25 Ibuprofen (Ibuprofen) 600 Mg Tab, 600 MG PO BID, MG 0 Refills 02/19/25 Furosemide (Furosemide 80 mg) 1 Tab Tab, 1 TAB PO DAILY, TAB 02/19/25 Carvedilol (Carvedilol) 3.125 Mg Tab, 1 TAB PO Q12HR 04/13/24 Sacubitril-Valsartan (Entresto 24-26 mg) 1 Tab Tab, 1 TAB PO Q12HR 04/13/24 Atorvastatin Calcium (Lipitor) 20 Mg Tab, 1 TAB PO DAILY 01/28/24 Pregabalin (Pregabalin) 50 Mg Cap, 1 CAP PO BID 01/28/24 Enalapril Maleate (Enalapril Maleate) 20 Mg Tab, 1 TAB PO BID 01/28/24 Amlodipine Besylate (Amlodipine Besylate) 5 Mg Tab, 10 MG PO DAILY for 30 Days, MG 05/25/23 Tamsulosin Hcl (Tamsulosin Hcl) 0.4 Mg Cap, 2 CAP PO HS 05/25/23 Discontinued Reported Medications Furosemide (Furosemide) 20 Mg Tab, 1 TAB PO DAILY 04/13/24 Current Medications Current Medications Medications (Trade) Dose Ordered Sig/Naomi Route PRN Reason Start Time Stop Time Status Last Admin Azithromycin 250 ml @ 125 mls/hr Q24H IV 02/20/25 05:00 Ceftriaxone Sodium 50 ml @ 100 mls/hr Q24H IV 02/20/25 05:00 Methylprednisolone Sodium Succinate (Solu Medrol) 40 mg BID IV 02/19/25 10:00 02/19/25 10:30 Ipratropium [place] (Atrovent Medneb) 0.5 mg Q6HR NEB 02/19/25 06:00 02/19/25 12:54 Ondansetron HCl (Zofran) 4 mg Q6HPRN PRN IV NAUSEA / VOMITING 02/19/25 05:45 Pantoprazole Sodium (Protonix) 40 mg DAILY IV 02/19/25 10:00 02/19/25 10:30 Acetaminophen/ Hydrocodone Bitart ([place] 5/325MG Tab) 1 tab Q6HPRN PRN PO PAIN SCALE 4 THRU 6 02/19/25 05:45 Acetaminophen (Tylenol Tablet) 650 mg Q6HPRN PRN PO PAIN SCALE 1-3 OR TEMP>100.4 02/19/25 05:45 Heparin Sodium (Porcine) 5,000 units BID SC 02/19/25 10:00 02/19/25 15:51 DC Review of Systems General: Positive for generalized weakness; denies current fever or chills. Respiratory: Positive for shortness of breath; no current chest pain. Cardiovascular: No chest pain, palpitations, or lower extremity edema at present. Gastrointestinal: Denies abdominal pain, nausea, or vomiting. Genitourinary:denies dysuria. Neurologic: Initial altered mental status improved; no focal deficits now. Skin: No rashes or ulcers. Vital Signs Vital Signs Date Time Temp Pulse Resp B/P (MAP) Pulse Ox O2 Delivery O2 Flow Rate FiO2 02/19/25 16:10 70 02/19/25 15:00 15 114/69 (84) 92 02/19/25 12:54 Simple Mask* 10 99 02/19/25 12:00 98.4 98.4 Physical Exam General: Alert, oriented, improved compared to admission. HEENT: Normocephalic, atraumatic. cardiovascular: Regular rhythm, no murmurs, no JVD. Pulmonary: Crackles heard bilaterally. Abdomen: Soft, non-tender, non-distended. Extremities: No peripheral edema. Neurologic: Alert and oriented 3; no focal neurological deficits. Labs/Diagnostic Data Labs Test 02/19/25 15:11 02/19/25 06:50 02/19/25 06:46 02/19/25 03:13 Range/Units Urine Color Yellow Yellow Urine Clarity Turbid H Clear Urine pH 5.0 5.0-9.0 Urine Specific [place] 1.018 1.001-1.035 Urine Protein 1+ H Negative Urine Ketones Negative Negative Urine Blood 1+ H Negative /uL Urine Nitrite Negative Negative Urine Bilirubin Negative Negative Urine Urobilinogen Normal Negative mg/dL Urine Leukocyte Esterase Negative Negative /uL Urine RBC 21 0 - 3 /hpf Urine Microscopic WBC 2 0-3 /HPF Urine Squamous Epithelial Cells None seen <5 /hpf Urine Bacteria None seen None Seen /hpf Urine Glucose Normal Normal mg/dL Influenza Type A Antigen Negative Negative Influenza Type B Antigen Negative Negative SARS-CoV-2 Antigen (Rapid) Negative NEGATIVE Blood Gas Specimen Type Arterial Blood Gas Sample Site Right radial Blood Gas Patient Temperature 37.0 Arterial Blood Date Drawn [id number] Arterial Blood pH 7.410 7.350-7.450 Arterial Blood Partial Pressure CO2 37.6 35.0-48.0 mmHg Arterial Blood Partial Pressure O2 74.8 L 83.0-108.0 mmHg Arterial Blood HCO3 23.3 21.0-28.0 mmol/L Arterial Blood Oxygen Saturation 93.8 L 94.0-98.0 % Arterial Blood Base Excess -1.1 -2.0-3.0 mmol/L Arterial Blood Oxyhemoglobin 93.0 L 94.0-98.0 % Arterial Blood Carboxyhemoglobin 0.6 0.5-1.5 % Arterial Blood Methemoglobin 0.3 0.0-1.5 % Hilario Test Yes Blood Gas Total Hemoglobin 11.50 L 13.5-17.5 g/dL Blood Gas Liter Flow 10.00 Blood Gas Modality Mask - simple FiO2 % 60.0 Iron Level 17 L 65-175 ug/dL Total Iron Binding Capacity 203 L 250-425 ug/dL Percent Iron Saturation 8.4 L 20-55 % Vitamin D 25-Hydroxy 11.0 L 30.0-100 ng/mL Test 02/19/25 03:00 02/19/25 00:00 Range/Units White Blood Count 4.4 4.4-10.8 10^3/uL Red Blood Count 4.27 L 4.5-5.90 10^6/uL Hemoglobin 11.5 L 13.5-17.5 g/dL Hematocrit 34.9 L 41.0-53.0 % Mean Corpuscular Volume 81.8 80.0-100.0 fL Mean Corpuscular Hemoglobin 27.0 L 28.0-32.0 pg Mean Corpuscular Hemoglobin Concent 33.0 32.0-36.0 g/dL Red Cell Distribution Width 15.5 H 11.8-14.3 % Platelet Count 83 L 140-450 10^3/uL Mean Platelet Volume 8.6 6.9-10.8 fL Neutrophils (%) (Auto) 73.1 37.0-80.0 % Lymphocytes (%) (Auto) 15.8 10.0-50.0 % Monocytes (%) (Auto) 10.9 0.0-12.0 % Eosinophils (%) (Auto) 0.1 0.0-7.0 % Basophils (%) (Auto) 0.1 0.0-2.0 % Neutrophils # (Auto) 3.3 1.6-8.6 10 ^3/uL Lymphocytes # (Auto) 0.7 0.4-5.4 10 ^3/uL Monocytes # (Auto) 0.5 0-1.3 10 ^3/uL Eosinophils # (Auto) 0 0-0.8 10 ^3/uL Basophils # (Auto) 0 0-0.2 10 ^3/uL Nucleated Red Blood Cells 0.0 % Prothrombin Time 11.0 9.3-11.8 sec Prothrombin Time INR 1.04 0.9-1.15 Activated Partial Thromboplast Time 33.2 24.5-34.5 SEC Sodium Level 137 136-145 mmol/L Potassium Level 3.3 L 3.5-5.1 mmol/L Chloride Level 100 98-107 mmol/L Carbon Dioxide Level 24 20-31 mmol/L Anion Gap 13 5-15 Blood Urea Nitrogen 62 H 9-23 mg/dL Creatinine 3.44 H 0.700-1.30 mg/dL Glomerular Filtration Rate Calc 17 >90 mL/min BUN/Creatinine Ratio 18.0 10.0-20.0 Serum Glucose 255 H 74-106 mg/dL Hemoglobin A1c 8.0 H <5.7 % A1C Lactic Acid Level 1.5 0.4-2.0 mmol/L Calcium Level 8.7 8.7-10.4 mg/dL Phosphorus Level 2.9 2.4-5.1 mg/dL Magnesium Level 1.8 1.6-2.6 mg/dL Total Bilirubin 1.0 0.2-1.0 mg/dL Aspartate Amino Transferase (AST) 13 13-40 U/L Alanine Aminotransferase (ALT) 12 7-40 U/L Alkaline Phosphatase 79 46-116 U/L B-Type Natriuretic Peptide 377.03 0-100 pg/mL Total Protein 5.7 5.7-8.2 g/dL Albumin 3.9 3.2-4.8 g/dL Parathyroid Hormone (Intact) 234.7 H 18.4-80.1 pg/mL Urine Creatinine 158.26 H 30.0-125.0 mg/dL Urine Protein/Creatinine Ratio 0.75 Urine Total Protein 118.2 H 1-14 mg/dL Assessment Assessment Acute Kidney Injury on Chronic Kidney Disease (CKD) Anemia of chronic disease likely due to bone marrow supression due to hodking lymphoma Thrombocytopenia likely due to bone marrow supression due to hodking lymphoma Type 2 diabetes mellitus, HbA1c 8 Plan Administer 50 cc normal saline boluses cautiously up to 1 liter total, with frequent reassessments. Monitor BUN, creatinine, and urine output closely. Renal diet. Place Mejía catheter Conservative fluid management. 50 cc per hour Oxygen supplementation via simple face mask. Monitor respiratory status closely; consider diuretics if pulmonary congestion worsens. iron panel Renal diet. Strict intake and output monitoring. Daily weights. Continue oxygen therapy and wean as tolerated. case discussed with code status full code Addendum Patient seen and examined, plan discussed with resident. Agree with above, we will follow closely bladder scan 1L ivf Plan discussed with: Patient DIVINE DURAN RESIDENT Feb 19, 2025 17:11 JERE ABEBE MD Feb 19, 2025 19:28
[2025-02-19] MEDS: CIPROFLOXACIN 0.3%OPTH(EYE) SOL 5ML EACHEYE SCH (19:17)
[2025-02-20] VITALS (16 sets, daily range): BP systolic 120–141; BP diastolic 60–74; PULSE 53–67; RESP 16–20; TEMP 97.3–98.1; O2SAT 93–99
[2025-02-20] MEDS: cefTRIAXone 1GM/50ML D5W 50 ML IV SCH (05:22)
[2025-02-20] MEDS: AZITHROMYCIN 500MG/ 250ML 250 ML IV SCH (06:47)
[2025-02-20 10:25] LABS: Basophils # (auto) 0 10 ^3/uL (0-0.2); Basophils % (auto) 0.1 % (0.0-2.0); Eosinophils # (auto) 0 10 ^3/uL (0-0.8); Hematocrit 36.6 % (41.0-53.0); Hemoglobin 12.3 g/dL (13.5-17.5); Lymphocytes # (auto) 0.3 10 ^3/uL (0.4-5.4); Lymphocytes % (auto) 9.4 % (10.0-50.0); Mean Corpuscular Hemoglobin 27.6 pg (28.0-32.0); Mean Corpuscular Hgb Conc. 33.5 g/dL (32.0-36.0); Mean Corpuscular Volume 82.6 fL (80.0-100.0); Monocytes # (auto) 0.2 10 ^3/uL (0-1.3); Neutrophils # (auto) 2.7 10 ^3/uL (1.6-8.6); Neutrophils % (auto) 85.5 % (37.0-80.0); Nucleated Red Blood Cells % 0.1 %; Platelet Count (auto) 94 10^3/uL (140-450); Red Blood Cells 4.44 10^6/uL (4.5-5.90); Red Cell Distribution Width 15.9 % (11.8-14.3); White Blood Cell 3.1 10^3/uL (4.4-10.8)
[2025-02-20 10:32] LABS: Chloride 101 mmol/L (98-107); Potassium 3.5 mmol/L (3.5-5.1); Sodium 136 mmol/L (136-145)
[2025-02-20 10:33] LABS: Anion Gap 11 (5-15); Calcium 9.7 mg/dL (8.7-10.4); Carbon Dioxide 24 mmol/L (20-31)
[2025-02-20 10:38] LABS: BUN/Creatinine Ratio 28.1 (10.0-20.0); Blood Urea Nitrogen 65 mg/dL (9-23)
[2025-02-20 10:39] LABS: Glucose 468 mg/dL (74-106)
[2025-02-20] MEDS ORDERED: DEXTROSE (50%) 50ML SYRG IV PRN (11:00)
[2025-02-20] MEDS: ACCU-CHEK COMFORT CURVE STRIP VI SCH (11:19)
[2025-02-20] MEDS: InsuLIN REG 1unit/0.01ml Soln (100units/ml) SC SCH ×2 (11:23→22:03)
[2025-02-20] MEDS ORDERED: IRON SUCROSE COMPLEX 110 ML IV SCH (12:00)
--- NOTE | 2025-02-20 12:43 | DVHPN2 ---
Progress Note - Dictate Date Seen: Feb 20, 2025 vital signs Vital Sign Date Time Temp Pulse Resp B/P (MAP) Pulse Ox O2 Delivery O2 Flow Rate FiO2 02/20/25 12:33 53 16 99 02/20/25 12:27 Nasal Cannula 2.0 02/20/25 12:27 28 02/20/25 05:00 98.1 141/67 (91) 98.1 Total Intake and Output 02/19/25 02/19/25 02/20/25 15:00 23:00 07:00 Intake Total 362 ml 440 ml 300 ml Output Total 600 ml 550 ml Balance 362 ml -160 ml -250 ml medications Current Medications Medications Dose Ordered Sig/Naomi Route Start Time Stop Time Status Last Admin Dose Admin Azithromycin 250 ml @ 125 mls/hr Q24H IV 02/20/25 05:00 02/20/25 06:47 125 MLS/HR Ceftriaxone Sodium 50 ml @ 100 mls/hr Q24H IV 02/20/25 05:00 02/20/25 05:22 100 MLS/HR Methylprednisolone Sodium Succinate 40 mg BID IV 02/19/25 10:00 02/20/25 08:32 40 MG Ipratropium [place] 0.5 mg Q6HR NEB 02/19/25 06:00 02/20/25 12:27 0.5 MG Ondansetron HCl 4 mg Q6HPRN PRN IV 02/19/25 05:45 Pantoprazole Sodium 40 mg DAILY IV 02/19/25 10:00 02/20/25 08:32 40 MG Acetaminophen/ Hydrocodone Bitart 1 tab Q6HPRN PRN PO 02/19/25 05:45 Acetaminophen 650 mg Q6HPRN PRN PO 02/19/25 05:45 Ciprofloxacin HCl 1 drop Q2HR EACHEYE 02/19/25 18:00 02/21/25 18:00 02/20/25 11:20 1 DROP Ciprofloxacin HCl 1 drop Q4HR EACHEYE 02/21/25 22:00 02/26/25 21:59 Diagnostic Test (Pha) 1 strip ACHS 02/20/25 11:30 02/20/25 11:19 1 STRIP Insulin Human Regular HS SC 02/20/25 22:00 Insulin Human Regular AC SC 02/20/25 11:30 02/20/25 11:23 15 UNITS Dextrose 50 ml UD PRN IV 02/20/25 11:00 objective General alert and oriented, mild distress HEENT: Atraumatic Neck: No swelling Lungs: Equal air entry and clear to auscultation Cardiovascular: S2 heard no murmur Abdomen: Soft nontender, no organomegaly, nondistended Neuro: Alert and oriented, no focal deficit Psych: Normal mood and affect laboratory and microbiology Laboratory Tests 02/20/25 10:05 Test 02/20/25 10:05 Range/Units Serum Glucose 468 #*H 74-106 mg/dL Assessment/Plan A 79-year-old male Multifocal pneumonia Radiation pneumonitis Acute hypoxic respiratory failure Pulmonary edema CHOCO Congestive heart failure with EF of 35% Lymphoma on chemotherapy Lung mass status post radiation therapy Recommendations Possible differential diagnosis is bacterial or viral pneumonia versus radiation pneumonitis or pulmonary edema due to low EF Recommend MRSA screen, sputum culture Also rule out viral etiology by screening for COVID, flu and RSV Patient currently has high oxygen requirement Empirically cover with Ceftriaoxone and azithromycin will wait on Vancomycin, he has CHOCO ( CHOCO + Low EF) could result in pulmonary edema consider lasix Reviewed CT chest personally which does shows infiltrate on both side of the lungs Pulmonary is on board Prognosis is guarded Thank you for consultation Plan discussed with EDUARDA Garcia MD Feb 20, 2025 12:43
--- NOTE | 2025-02-20 14:04 | DVHPN2 ---
Progress Note - Dictate Date Seen: Feb 20, 2025 Medical Necessity Reason Pt with a Central, PICC or Fol: No vital signs Vital Sign Date Time Temp Pulse Resp B/P (MAP) Pulse Ox O2 Delivery O2 Flow Rate FiO2 02/20/25 12:33 53 16 99 02/20/25 12:27 Nasal Cannula 2.0 02/20/25 12:27 28 02/20/25 05:00 98.1 141/67 (91) 98.1 Total Intake and Output 02/19/25 02/19/25 02/20/25 15:00 23:00 07:00 Intake Total 362 ml 440 ml 300 ml Output Total 600 ml 550 ml Balance 362 ml -160 ml -250 ml medications Current Medications Medications Dose Ordered Sig/Naoim Route Start Time Stop Time Status Last Admin Dose Admin Azithromycin 250 ml @ 125 mls/hr Q24H IV 02/20/25 05:00 02/20/25 06:47 125 MLS/HR Ceftriaxone Sodium 50 ml @ 100 mls/hr Q24H IV 02/20/25 05:00 02/20/25 05:22 100 MLS/HR Methylprednisolone Sodium Succinate 40 mg BID IV 02/19/25 10:00 02/20/25 08:32 40 MG Ipratropium [place] 0.5 mg Q6HR NEB 02/19/25 06:00 02/20/25 12:27 0.5 MG Ondansetron HCl 4 mg Q6HPRN PRN IV 02/19/25 05:45 Pantoprazole Sodium 40 mg DAILY IV 02/19/25 10:00 02/20/25 08:32 40 MG Acetaminophen/ Hydrocodone Bitart 1 tab Q6HPRN PRN PO 02/19/25 05:45 Acetaminophen 650 mg Q6HPRN PRN PO 02/19/25 05:45 Ciprofloxacin HCl 1 drop Q2HR EACHEYE 02/19/25 18:00 02/21/25 18:00 02/20/25 11:20 1 DROP Ciprofloxacin HCl 1 drop Q4HR EACHEYE 02/21/25 22:00 02/26/25 21:59 Diagnostic Test (Pha) 1 strip ACHS 02/20/25 11:30 02/20/25 11:19 1 STRIP Insulin Human Regular HS SC 02/20/25 22:00 Insulin Human Regular AC SC 02/20/25 11:30 02/20/25 11:23 15 UNITS Dextrose 50 ml UD PRN IV 02/20/25 11:00 laboratory and microbiology Laboratory Tests 02/20/25 10:05 Test 02/20/25 10:05 Range/Units Serum Glucose 468 #*H 74-106 mg/dL Assessment/Plan acute hypoxemic resp failure pneumonia lymphoma' CHOCO pt seen and examined imrpoving 02 at baseline cont steroids (with taper upon dc) abx 5-7 days alb/atr monitor labs renal function Plan discussed with: Patient, Other (rn) ANDREIA HAWLEY MD Feb 20, 2025 14:03
--- NOTE | 2025-02-20 15:01 | DVHPN2 ---
Subjective Overnight events noted. Patient's A1c came back 8.0 Reviewed: Care Plan Changes from previous H/P or p: No Changes Objective Vitals Vital Signs Date Time Temp Pulse Resp B/P (MAP) Pulse Ox O2 Delivery O2 Flow Rate FiO2 02/20/25 12:33 53 16 99 02/20/25 12:27 Nasal Cannula 2.0 02/20/25 12:27 28 02/20/25 05:00 98.1 141/67 (91) 98.1 Intake/Output Intake and Output 02/20/25 07:00 Intake Total 1102 ml Output Total 1150 ml Balance -48 ml Intake Oral 490 ml IV Total 612 ml Output Urine Total 1150 ml # Bowel Movements 1 Exam HEENT pupils are reactive Neck is supple CV is S1-S2 regular rate and rhythm Respiratory are clear GI positive bowel sound Extremity no edema 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 Medications Current Medications Medications Dose Ordered Sig/Naomi Route Start Time Stop Time Status Last Admin Dose Admin Azithromycin 250 ml @ 125 mls/hr Q24H IV 02/20/25 05:00 02/20/25 06:47 125 MLS/HR Ceftriaxone Sodium 50 ml @ 100 mls/hr Q24H IV 02/20/25 05:00 02/20/25 05:22 100 MLS/HR Methylprednisolone Sodium Succinate 40 mg BID IV 02/19/25 10:00 02/20/25 08:32 40 MG Ipratropium [place] 0.5 mg Q6HR NEB 02/19/25 06:00 02/20/25 12:27 0.5 MG Ondansetron HCl 4 mg Q6HPRN PRN IV 02/19/25 05:45 Pantoprazole Sodium 40 mg DAILY IV 02/19/25 10:00 02/20/25 08:32 40 MG Acetaminophen/ Hydrocodone Bitart 1 tab Q6HPRN PRN PO 02/19/25 05:45 Acetaminophen 650 mg Q6HPRN PRN PO 02/19/25 05:45 Ciprofloxacin HCl 1 drop Q2HR EACHEYE 02/19/25 18:00 02/21/25 18:00 02/20/25 14:05 1 DROP Ciprofloxacin HCl 1 drop Q4HR EACHEYE 02/21/25 22:00 02/26/25 21:59 Diagnostic Test (Pha) 1 strip ACHS 02/20/25 11:30 02/20/25 11:19 1 STRIP Insulin Human Regular HS SC 02/20/25 22:00 Insulin Human Regular AC SC 02/20/25 11:30 02/20/25 11:23 15 UNITS Dextrose 50 ml UD PRN IV 02/20/25 11:00 Laboratory Results Laboratory Tests 02/20/25 10:05 Chemistry Test 02/20/25 10:05 Calcium Level 9.7 mg/dL (8.7-10.4) Urinalysis Test 02/19/25 00:00 02/19/25 15:11 Urine Creatinine 158.26 mg/dL (30.0-125.0) H Urine Protein/Creatinine Ratio 0.75 Urine Total Protein 118.2 mg/dL (1-14) H Urine Color Yellow (Yellow) Urine Clarity Turbid (Clear) H Urine pH 5.0 (5.0-9.0) Urine Specific [place] 1.018 (1.001-1.035) Urine Protein 1+ (Negative) H Urine Ketones Negative (Negative) Urine Blood 1+ /uL (Negative) H Urine Nitrite Negative (Negative) Urine Bilirubin Negative (Negative) Urine Urobilinogen Normal mg/dL (Negative) Urine Leukocyte Esterase Negative /uL (Negative) Urine RBC 21 /hpf (0 - 3) Urine Microscopic WBC 2 /HPF (0-3) Urine Squamous Epithelial Cells None seen /hpf (<5) Urine Bacteria None seen /hpf (None Seen) Urine Glucose Normal mg/dL (Normal) Microbiology Microbiology Date/Time Source Procedure Growth Status 02/19/25 03:13 Blood Blood Culture - Preliminary NO GROWTH AFTER 24 HOURS OF INCUBATION. Resulted Assessment/Plan Assessment/Plan 9-year-old male with a known history of Hodgkin lymphoma, status post chemotherapy, status post radiation, cardiomyopathy with EF 35%, congestive heart failure, BPH, hypertension, peripheral neuropathy initially presented to the hospital with generalized weakness altered mental status patient was found to have 1. Acute hypoxic respiratory failure requiring 2 L of oxygen 2. Multifocal pneumonia 3. Lymphoma status post chemotherapy and radiation 4. Left lung mass status post radiation 5. Acute encephalopathy currently resolved 6. Congestive heart failure with the EF of 35% 7. Diabetes mellitus-type 2 -start Januvia, diabetic education, give metformin upon discharge -IV antibiotics, infectious disease consultation, Plan discussed with: Patient, Spouse My Orders Orders - SOPHIA MILLAN MD Procedure Category Date Status Time Cardiac DIET 4/28/25 Transmitted Diet-2gna,Lofat,Lochol Dinner * Infectious [place]- Dr. CONS 02/19/25 Transmitted Mallad 15:56 Ciprofloxacin 0.3% PHA 02/19/25 In Process Opthalmic (Cipro Opth 18:00 Ciprofloxacin 0.3% PHA 02/21/25 In Process Opthalmic (Cipro Opth 22:00 * Wound Consult CONS 02/19/25 Transmitted Glucose Blood PHA 02/20/25 In Process (Accu-Chek Comfort 11:30 Insulin R (Human) PHA 02/20/25 In Process (Insulin R) 22:00 Insulin R (Human) PHA 02/20/25 In Process (Insulin R) 11:30 Dextrose 50% Syringe PHA 02/20/25 In Process 11:00 Empagliflozin PHA 02/20/25 Transmitted (Jardiance) 15:00 Date of Service: Feb 20, 2025 Billing Provider: SOPHIA MILLAN MD Common Visit Codes: NOT BILLABLE SOPHIA MILLAN MD Feb 20, 2025 15:01
--- NOTE | 2025-02-20 17:12 | DVHPN2 ---
Progress Note Date Seen: Feb 20, 2025 Resident Creating Document: DIVINE DURAN RESIDENT Medical Necessity Reason Pt with a Central, PICC or Fol: No Subjective Review of Systems Patient is seen and examined at bedside, patient will need to continue on 1 L fluid normal saline 0.9% at 50 cc/hour. We will continue monitoring closely Hyperglycemia improving Patient reports: No new complaints Changes from previous H/P or p: No Changes Objective vital signs Vital Sign Date Time Temp Pulse Resp B/P (MAP) Pulse Ox O2 Delivery O2 Flow Rate FiO2 02/20/25 13:00 98.0 62 17 121/60 (80) 94 98.0 02/20/25 12:27 Nasal Cannula 2.0 02/20/25 12:27 28 Total Intake and Output 02/19/25 02/19/25 02/20/25 15:00 23:00 07:00 Intake Total 362 ml 440 ml 300 ml Output Total 600 ml 550 ml Balance 362 ml -160 ml -250 ml medications Current Medications Medications Dose Ordered Sig/Naomi Route Start Time Stop Time Status Last Admin Dose Admin Azithromycin 250 ml @ 125 mls/hr Q24H IV 02/20/25 05:00 02/20/25 06:47 125 MLS/HR Ceftriaxone Sodium 50 ml @ 100 mls/hr Q24H IV 02/20/25 05:00 02/20/25 05:22 100 MLS/HR Ipratropium [place] 0.5 mg Q6HR NEB 02/19/25 06:00 02/20/25 12:27 0.5 MG Ondansetron HCl 4 mg Q6HPRN PRN IV 02/19/25 05:45 Pantoprazole Sodium 40 mg DAILY IV 02/19/25 10:00 02/20/25 08:32 40 MG Acetaminophen/ Hydrocodone Bitart 1 tab Q6HPRN PRN PO 02/19/25 05:45 Acetaminophen 650 mg Q6HPRN PRN PO 02/19/25 05:45 Ciprofloxacin HCl 1 drop Q2HR EACHEYE 02/19/25 18:00 02/21/25 18:00 02/20/25 16:49 1 DROP Ciprofloxacin HCl 1 drop Q4HR EACHEYE 02/21/25 22:00 02/26/25 21:59 Diagnostic Test (Pha) 1 strip ACHS 02/20/25 11:30 02/20/25 11:19 1 STRIP Insulin Human Regular HS SC 02/20/25 22:00 Insulin Human Regular AC SC 02/20/25 11:30 02/20/25 11:23 15 UNITS Dextrose 50 ml UD PRN IV 02/20/25 11:00 Empaglifozin 10 mg DAILY PO 02/20/25 15:00 Examination: GENERAL:Normal, HEENT:Normal, NECK:Normal, LUNGS:Normal, CVS:Normal, ABDOMEN:Normal, MSK:Normal, SKIN:Normal, NEURO:Normal, :Normal laboratory and microbiology Laboratory Tests 02/20/25 10:05 Test 02/20/25 10:05 Range/Units Serum Glucose 468 #*H 74-106 mg/dL Microbiology Date/Time Source Procedure Growth Status 02/19/25 03:13 Blood Blood Culture - Preliminary NO GROWTH AFTER 24 HOURS OF INCUBATION. Resulted Problem List/Assessment/Plan Problem List/Assessment/Plan Assessment Acute Kidney Injury on Chronic Kidney Disease (CKD) Anemia of chronic disease likely due to bone marrow supression due to hodking lymphoma Thrombocytopenia likely due to bone marrow supression due to hodking lymphoma Type 2 diabetes mellitus, HbA1c 8 Plan Administer 50 cc normal saline cautiously up to 1 liter total, with frequent reassessments. Monitor BUN, creatinine, and urine output closely. Renal diet. Strict intake and output monitoring. Daily weights. Continue oxygen therapy and wean as tolerated. Case discussed with Dr. [place] Code status full code Addendum Patient seen and examined, plan discussed with resident. Agree with above, we will follow closely Plan discussed with: Patient DIVINE DURAN Feb 20, 2025 17:12 JERE CAMARILLO MD Feb 20, 2025 19:14
[2025-02-20] MEDS: EMPAGLIFLOZIN 10 MG TAB PO SCH (17:13)
[2025-02-21] VITALS (12 sets, daily range): BP systolic 113–141; BP diastolic 45–67; PULSE 54–80; RESP 16–20; TEMP 97.3–97.9; O2SAT 89–100
[2025-02-21 06:23] LABS: Basophils # (auto) 0 10 ^3/uL (0-0.2); Basophils % (auto) 0.1 % (0.0-2.0); Eosinophils # (auto) 0 10 ^3/uL (0-0.8); Hematocrit 37.9 % (41.0-53.0); Hemoglobin 12.5 g/dL (13.5-17.5); Lymphocytes # (auto) 0.5 10 ^3/uL (0.4-5.4); Lymphocytes % (auto) 8.8 % (10.0-50.0); Mean Corpuscular Hemoglobin 27.2 pg (28.0-32.0); Mean Corpuscular Hgb Conc. 33.1 g/dL (32.0-36.0); Mean Corpuscular Volume 82.3 fL (80.0-100.0); Monocytes # (auto) 0.4 10 ^3/uL (0-1.3); Monocytes % (auto) 7.9 % (0.0-12.0); Neutrophils # (auto) 4.6 10 ^3/uL (1.6-8.6); Neutrophils % (auto) 83.2 % (37.0-80.0); Platelet Count (auto) 108 10^3/uL (140-450); White Blood Cell 5.6 10^3/uL (4.4-10.8)
[2025-02-21 06:31] LABS: Chloride 106 mmol/L (98-107); Sodium 143 mmol/L (136-145)
[2025-02-21 06:32] LABS: Anion Gap 11 (5-15); Calcium 9.9 mg/dL (8.7-10.4); Carbon Dioxide 26 mmol/L (20-31)
[2025-02-21 06:37] LABS: BUN/Creatinine Ratio 32.3 (10.0-20.0)
[2025-02-21 06:38] LABS: Magnesium 2.5 mg/dL (1.6-2.6)
[2025-02-21 06:39] LABS: Blood Urea Nitrogen 64 mg/dL (9-23); Glucose 205 mg/dL (74-106); Potassium 3.4 mmol/L (3.5-5.1)
[2025-02-21] MEDS: POTASSIUM EFFERVESENT TAB 25 MEQ PO ONE (08:56)
--- NOTE | 2025-02-21 12:24 | DVHPN2 ---
Progress Note Date Seen: Feb 21, 2025 Resident Creating Document: GINNA GARRISON RESIDENT Medical Necessity Reason Pt with a Central, PICC or Fol: No Subjective Review of Systems Patient is seen and examined at bedside, patient denied any acute complaint. Objective vital signs Vital Sign Date Time Temp Pulse Resp B/P (MAP) Pulse Ox O2 Delivery O2 Flow Rate FiO2 02/21/25 11:57 80 16 98 02/21/25 08:30 97.3 113/61 (78) 97.3 02/21/25 08:00 Nasal Cannula* 2 28 Total Intake and Output 02/20/25 02/20/25 02/21/25 15:00 23:00 07:00 Intake Total 1730 ml 1080 ml 675 ml Output Total 800 ml 750 ml Balance 1730 ml 280 ml -75 ml medications Current Medications Medications Dose Ordered Sig/Naomi Route Start Time Stop Time Status Last Admin Dose Admin Azithromycin 250 ml @ 125 mls/hr Q24H IV 02/20/25 05:00 02/21/25 05:33 125 MLS/HR Ceftriaxone Sodium 50 ml @ 100 mls/hr Q24H IV 02/20/25 05:00 02/21/25 04:33 100 MLS/HR Ipratropium [place] 0.5 mg Q6HR NEB 02/19/25 06:00 02/21/25 11:47 0.5 MG Ondansetron HCl 4 mg Q6HPRN PRN IV 02/19/25 05:45 Pantoprazole Sodium 40 mg DAILY IV 02/19/25 10:00 02/21/25 08:56 40 MG Acetaminophen/ Hydrocodone Bitart 1 tab Q6HPRN PRN PO 02/19/25 05:45 Acetaminophen 650 mg Q6HPRN PRN PO 02/19/25 05:45 Ciprofloxacin HCl 1 drop Q2HR EACHEYE 02/19/25 18:00 02/21/25 18:00 02/21/25 11:45 1 DROP Ciprofloxacin HCl 1 drop Q4HR EACHEYE 02/21/25 22:00 02/26/25 21:59 Diagnostic Test (Pha) 1 strip ACHS 02/20/25 11:30 02/21/25 11:49 1 STRIP Insulin Human Regular HS SC 02/20/25 22:00 02/20/25 22:03 4 UNITS Insulin Human Regular AC SC 02/20/25 11:30 02/21/25 11:49 6 UNITS Dextrose 50 ml UD PRN IV 02/20/25 11:00 Empaglifozin 10 mg DAILY PO 02/20/25 15:00 02/21/25 08:56 10 MG Examination GENERAL:Normal, HEENT:Normal, NECK:Normal, NECK:Abnormal, CVS:Normal, ABDOMEN:Normal, MSK:Normal, SKIN:Normal, NEURO:Normal, :Normal. laboratory and microbiology Laboratory Tests 02/21/25 05:36 Test 02/21/25 05:36 Range/Units Serum Glucose 205 #H 74-106 mg/dL Microbiology Date/Time Source Procedure Growth Status 02/19/25 03:13 Blood Blood Culture - Preliminary NO GROWTH AFTER 48 HOURS OF INCUBATION. Resulted Problem List/Assessment/Plan Problem List/Assessment/Plan acute hypoxemic resp failure pneumonia lymphoma' CHOCO pt seen and examined imrpoving 02 at baseline cont steroids (with taper upon dc) abx 5-7 days. Case discussed with Dr. Hunter. Plan discussed with: Patient Date of Service: Feb 21, 2025 Billing Provider: ANDREIA HUNTER MD Common Visit Codes: NOT BILLABLE GINNA GARRISON RESIDENT Feb 21, 2025 12:24 ANDREIA HUNTER MD February 22, 2025 09:54
[2025-02-21] MEDS ORDERED: EMPA1TAB PO (13:41)
[2025-02-21] MEDS ORDERED: CEFD300C2 PO (13:41)
[2025-02-21] MEDS ORDERED: LANC-347 XX (13:41)
[2025-02-21] MEDS ORDERED: BLOO1KIT60 XX (13:41)
[2025-02-21] MEDS ORDERED: AZIT500T66 PO (13:41)
--- NOTE | 2025-02-21 13:42 | DVHDS2 ---
Discharge Summary Date of Admission Feb 19, 2025 at 05:53 Date of Discharge: Feb 21, 2025 Labs/Diagnostic Data: Laboratory Results Test 02/21/25 11:17 02/21/25 05:36 02/20/25 10:05 02/19/25 15:11 POC Glucose 217 mg/dl (70-106) White Blood Count 5.6 10^3/uL (4.4-10.8) Red Blood Count 4.60 10^6/uL (4.5-5.90) Hemoglobin 12.5 g/dL (13.5-17.5) Hematocrit 37.9 % (41.0-53.0) Mean Corpuscular Volume 82.3 fL (80.0-100.0) Mean Corpuscular Hemoglobin 27.2 pg (28.0-32.0) Mean Corpuscular Hemoglobin Concent 33.1 g/dL (32.0-36.0) Red Cell Distribution Width 16.0 % (11.8-14.3) Platelet Count 108 10^3/uL (140-450) Mean Platelet Volume 9.1 fL (6.9-10.8) Neutrophils (%) (Auto) 83.2 % (37.0-80.0) Lymphocytes (%) (Auto) 8.8 % (10.0-50.0) Monocytes (%) (Auto) 7.9 % (0.0-12.0) Eosinophils (%) (Auto) 0.0 % (0.0-7.0) Basophils (%) (Auto) 0.1 % (0.0-2.0) Neutrophils # (Auto) 4.6 10 ^3/uL (1.6-8.6) Lymphocytes # (Auto) 0.5 10 ^3/uL (0.4-5.4) Monocytes # (Auto) 0.4 10 ^3/uL (0-1.3) Eosinophils # (Auto) 0 10 ^3/uL (0-0.8) Basophils # (Auto) 0 10 ^3/uL (0-0.2) Nucleated Red Blood Cells 0.0 % Sodium Level 143 mmol/L (136-145) Potassium Level 3.4 mmol/L (3.5-5.1) Chloride Level 106 mmol/L (98-107) Carbon Dioxide Level 26 mmol/L (20-31) Anion Gap 11 (5-15) Blood Urea Nitrogen 64 mg/dL (9-23) Creatinine 1.98 mg/dL (0.700-1.30) Glomerular Filtration Rate Calc 34 mL/min (>90) BUN/Creatinine Ratio 32.3 (10.0-20.0) Serum Glucose 205 mg/dL (74-106) Calcium Level 9.9 mg/dL (8.7-10.4) Magnesium Level 2.5 mg/dL (1.6-2.6) Ferritin 853.0 ng/mL (22-322) Urine Color Yellow (Yellow) Urine Clarity Turbid (Clear) Urine pH 5.0 (5.0-9.0) Urine Specific [place] 1.018 (1.001-1.035) Urine Protein 1+ (Negative) Urine Ketones Negative (Negative) Urine Blood 1+ /uL (Negative) Urine Nitrite Negative (Negative) Urine Bilirubin Negative (Negative) Urine Urobilinogen Normal mg/dL (Negative) Urine Leukocyte Esterase Negative /uL (Negative) Urine RBC 21 /hpf (0 - 3) Urine Microscopic WBC 2 /HPF (0-3) Urine Squamous Epithelial Cells None seen /hpf (<5) Urine Bacteria None seen /hpf (None Seen) Urine Glucose Normal mg/dL (Normal) Test 02/19/25 06:50 02/19/25 06:46 02/19/25 03:13 02/19/25 03:00 Influenza Type A Antigen Negative (Negative) Influenza Type B Antigen Negative (Negative) SARS-CoV-2 Antigen (Rapid) Negative (NEGATIVE) Blood Gas Specimen Type Arterial Blood Gas Sample Site Right radial Blood Gas Patient Temperature 37.0 Arterial Blood Date Drawn [id number] Arterial Blood pH 7.410 (7.350-7.450) Arterial Blood Partial Pressure CO2 37.6 mmHg (35.0-48.0) Arterial Blood Partial Pressure O2 74.8 mmHg (83.0-108.0) Arterial Blood HCO3 23.3 mmol/L (21.0-28.0) Arterial Blood Oxygen Saturation 93.8 % (94.0-98.0) Arterial Blood Base Excess -1.1 mmol/L (-2.0-3.0) Arterial Blood Oxyhemoglobin 93.0 % (94.0-98.0) Arterial Blood Carboxyhemoglobin 0.6 % (0.5-1.5) Arterial Blood Methemoglobin 0.3 % (0.0-1.5) Hilario Test Yes Blood Gas Total Hemoglobin 11.50 g/dL (13.5-17.5) Blood Gas Liter Flow 10.00 Blood Gas Modality Mask - simple FiO2 % 60.0 Iron Level 17 ug/dL (65-175) Total Iron Binding Capacity 203 ug/dL (250-425) Percent Iron Saturation 8.4 % (20-55) Vitamin D 25-Hydroxy 11.0 ng/mL (30.0-100) Prothrombin Time 11.0 sec (9.3-11.8) Prothrombin Time INR 1.04 (0.9-1.15) Activated Partial Thromboplast Time 33.2 SEC (24.5-34.5) Hemoglobin A1c 8.0 % A1C (<5.7) Lactic Acid Level 1.5 mmol/L (0.4-2.0) Phosphorus Level 2.9 mg/dL (2.4-5.1) Total Bilirubin 1.0 mg/dL (0.2-1.0) Aspartate Amino Transferase (AST) 13 U/L (13-40) Alanine Aminotransferase (ALT) 12 U/L (7-40) Alkaline Phosphatase 79 U/L (46-116) B-Type Natriuretic Peptide 377.03 pg/mL (0-100) Total Protein 5.7 g/dL (5.7-8.2) Albumin 3.9 g/dL (3.2-4.8) Parathyroid Hormone (Intact) 234.7 pg/mL (18.4-80.1) Test 02/19/25 00:00 Urine Creatinine 158.26 mg/dL (30.0-125.0) Urine Protein/Creatinine Ratio 0.75 Urine Total Protein 118.2 mg/dL (1-14) Other Laboratory Tests 02/21/25 05:36 Brief Hx & Hospital Course: 79year-old male with a known history of Hodgkin lymphoma, status post chemotherapy, status post radiation, cardiomyopathy with EF 35%, congestive heart failure, BPH, hypertension, peripheral neuropathy initially presented to the hospital with generalized weakness altered mental status patient was found to have hypoxic respiratory failure secondary to multifocal pneumonia. Patient does have known history of lymphoma. Patient A1c is 8.0 started on Jardiance. Patient currently switch to p.o. antibiotics upon discharge. Condition at Discharge: Stable Final Diagnosis/Problems List 79-year-old male with a known history of Hodgkin lymphoma, status post chemotherapy, status post radiation, cardiomyopathy with EF 35%, congestive heart failure, BPH, hypertension, peripheral neuropathy initially presented to the hospital with generalized weakness altered mental status patient was found to have 1. Acute hypoxic respiratory failure requiring 2 L of oxygen 2. Multifocal pneumonia 3. Lymphoma status post chemotherapy and radiation 4. Left lung mass status post radiation 5. Acute encephalopathy currently resolved 6. Congestive heart failure with the EF of 35% 7. Diabetes mellitus-type 2 Discharge Disposition: Home with Health Services SNF Discharge Will this Physician continue t: No Discharge Instruct/Medications Diet: Cardiac 2g Na,low cholest Diet comment: 1800 diabetic diet Activity: No Restrictions, As Tolerated Follow Up/Referral: Follow with PCP in 1-2 beats Medications: As prescribed and reconciled Discharge Statement: "Patient was advised to return to the ER or call 911 if any headaches, dizziness, shortness of breath, chest pain, abdominal pain, bleeding, fevers, or worsening of medical condition. Patient was counseled about treatment plan, medications, possible side effects, patientverbalized understanding. All questions were answered to the best of my ability. This discharge took greater then 30 minutes in planning, reviewing documentation, counseling the patient, and discussing with other team members." ASSESSMENT ASSESSMENT Assessment 79-year-old male with a known history of Hodgkin lymphoma, status post chemotherapy, status post radiation, cardiomyopathy with EF 35%, congestive heart failure, BPH, hypertension, peripheral neuropathy initially presented to the hospital with generalized weakness altered mental status patient was found to have 1. Acute hypoxic respiratory failure requiring 2 L of oxygen 2. Multifocal pneumonia 3. Lymphoma status post chemotherapy and radiation 4. Left lung mass status post radiation 5. Acute encephalopathy currently resolved 6. Congestive heart failure with the EF of 35% 7. Diabetes mellitus-type 2 Date of Service: Feb 21, 2025 Billing Provider: SOPHIA MILLAN MD Common Visit Codes: NOT BILLABLE SOPHIA MILLAN MD Feb 21, 2025 13:42
--- NOTE | 2025-02-21 14:30 | DVHPN2 ---
Progress Note - Dictate Date Seen: Feb 21, 2025 Medical Necessity Reason Pt with a Central, PICC or Fol: No vital signs Vital Sign Date Time Temp Pulse Resp B/P (MAP) Pulse Ox O2 Delivery O2 Flow Rate FiO2 02/21/25 12:56 97.9 66 18 118/64 (82) 91 97.9 02/21/25 08:00 Nasal Cannula* 2 28 Total Intake and Output 02/20/25 02/20/25 02/21/25 15:00 23:00 07:00 Intake Total 1730 ml 1080 ml 675 ml Output Total 800 ml 750 ml Balance 1730 ml 280 ml -75 ml medications Current Medications Medications Dose Ordered Sig/Naomi Route Start Time Stop Time Status Last Admin Dose Admin Azithromycin 250 ml @ 125 mls/hr Q24H IV 02/20/25 05:00 02/21/25 05:33 125 MLS/HR Ceftriaxone Sodium 50 ml @ 100 mls/hr Q24H IV 02/20/25 05:00 02/21/25 04:33 100 MLS/HR Ipratropium [place] 0.5 mg Q6HR NEB 02/19/25 06:00 02/21/25 11:47 0.5 MG Ondansetron HCl 4 mg Q6HPRN PRN IV 02/19/25 05:45 Pantoprazole Sodium 40 mg DAILY IV 02/19/25 10:00 02/21/25 08:56 40 MG Acetaminophen/ Hydrocodone Bitart 1 tab Q6HPRN PRN PO 02/19/25 05:45 Acetaminophen 650 mg Q6HPRN PRN PO 02/19/25 05:45 Ciprofloxacin HCl 1 drop Q2HR EACHEYE 02/19/25 18:00 02/21/25 18:00 02/21/25 11:45 1 DROP Ciprofloxacin HCl 1 drop Q4HR EACHEYE 02/21/25 22:00 02/26/25 21:59 Diagnostic Test (Pha) 1 strip ACHS 02/20/25 11:30 02/21/25 11:49 1 STRIP Insulin Human Regular HS SC 02/20/25 22:00 02/20/25 22:03 4 UNITS Insulin Human Regular AC SC 02/20/25 11:30 02/21/25 11:49 6 UNITS Dextrose 50 ml UD PRN IV 02/20/25 11:00 Empaglifozin 10 mg DAILY PO 02/20/25 15:00 02/21/25 08:56 10 MG objective General alert and oriented, mild distress HEENT: Atraumatic Neck: No swelling Lungs: Equal air entry and clear to auscultation Cardiovascular: S2 heard no murmur Abdomen: Soft nontender, no organomegaly, nondistended Neuro: Alert and oriented, no focal deficit Psych: Normal mood and affect laboratory and microbiology Laboratory Tests 02/21/25 05:36 Test 02/21/25 05:36 Range/Units Serum Glucose 205 #H 74-106 mg/dL Assessment/Plan A 79-year-old male Multifocal pneumonia Radiation pneumonitis Acute hypoxic respiratory failure Pulmonary edema CHOCO Congestive heart failure with EF of 35% Lymphoma on chemotherapy Lung mass status post radiation therapy Recommendations Possible differential diagnosis is bacterial or viral pneumonia versus radiation pneumonitis or pulmonary edema due to low EF Recommend MRSA screen, sputum culture Also rule out viral etiology by screening for COVID, flu and RSV Patient currently has high oxygen requirement Empirically cover with Ceftriaoxone and azithromycin will wait on Vancomycin, he has CHOCO ( CHOCO + Low EF) could result in pulmonary edema consider lasix Reviewed CT chest personally which does shows infiltrate on both side of the lungs Pulmonary is on board Prognosis is guarded Thank you for consultation Plan discussed with EDUARDA Garcia MD Feb 21, 2025 14:30
--- NOTE | 2025-02-21 15:25 | DVHPN2 ---
Progress Note Date Seen: Feb 21, 2025 Resident Creating Document: DIVINE DURNA RESIDENT Medical Necessity Reason Pt with a Central, PICC or Fol: No The following are medically ne: Dumont Catheter Reason for dumont catheter: Strict I&O Subjective Review of Systems Patient is seen and examined at bedside, patient denied any acute complaint and kidney function is improving. We are going to discontinue IV fluids at this time. Patient reports: Feels better Objective vital signs Vital Sign Date Time Temp Pulse Resp B/P (MAP) Pulse Ox O2 Delivery O2 Flow Rate FiO2 02/21/25 12:56 97.9 66 18 118/64 (82) 91 97.9 02/21/25 08:00 Nasal Cannula* 2 28 Total Intake and Output 02/20/25 02/20/25 02/21/25 15:00 23:00 07:00 Intake Total 1730 ml 1080 ml 675 ml Output Total 800 ml 750 ml Balance 1730 ml 280 ml -75 ml medications Current Medications Medications Dose Ordered Sig/Naomi Route Start Time Stop Time Status Last Admin Dose Admin Azithromycin 250 ml @ 125 mls/hr Q24H IV 02/20/25 05:00 02/21/25 05:33 125 MLS/HR Ceftriaxone Sodium 50 ml @ 100 mls/hr Q24H IV 02/20/25 05:00 02/21/25 04:33 100 MLS/HR Ipratropium [place] 0.5 mg Q6HR NEB 02/19/25 06:00 02/21/25 11:47 0.5 MG Ondansetron HCl 4 mg Q6HPRN PRN IV 02/19/25 05:45 Pantoprazole Sodium 40 mg DAILY IV 02/19/25 10:00 02/21/25 08:56 40 MG Acetaminophen/ Hydrocodone Bitart 1 tab Q6HPRN PRN PO 02/19/25 05:45 Acetaminophen 650 mg Q6HPRN PRN PO 02/19/25 05:45 Ciprofloxacin HCl 1 drop Q2HR EACHEYE 02/19/25 18:00 02/21/25 18:00 02/21/25 11:45 1 DROP Ciprofloxacin HCl 1 drop Q4HR EACHEYE 02/21/25 22:00 02/26/25 21:59 Diagnostic Test (Pha) 1 strip ACHS 02/20/25 11:30 02/21/25 11:49 1 STRIP Insulin Human Regular HS SC 02/20/25 22:00 02/20/25 22:03 4 UNITS Insulin Human Regular AC SC 02/20/25 11:30 02/21/25 11:49 6 UNITS Dextrose 50 ml UD PRN IV 02/20/25 11:00 Empaglifozin 10 mg DAILY PO 02/20/25 15:00 02/21/25 08:56 10 MG Examination: GENERAL:Normal, HEENT:Normal, NECK:Normal, NECK:Abnormal, CVS:Normal, ABDOMEN:Normal, MSK:Normal, SKIN:Normal, NEURO:Normal, :Normal laboratory and microbiology Laboratory Tests 02/21/25 05:36 Test 02/21/25 05:36 Range/Units Serum Glucose 205 #H 74-106 mg/dL Microbiology Date/Time Source Procedure Growth Status 02/19/25 03:13 Blood Blood Culture - Preliminary NO GROWTH AFTER 48 HOURS OF INCUBATION. Resulted Problem List/Assessment/Plan Problem List/Assessment/Plan Assessment Acute Kidney Injury on Chronic Kidney Disease (CKD) Anemia of chronic disease likely due to bone marrow supression due to hodking lymphoma Thrombocytopenia likely due to bone marrow supression due to hodking lymphoma Type 2 diabetes mellitus, HbA1c 8 Plan Discontinue IV fluids Kidney function improving Monitor BUN, creatinine, and urine output closely. Renal diet. Strict I&Os monitoring. Daily weights. Continue oxygen therapy and wean as tolerated. Case discussed with Dr. Abebe Code status full code Addendum Patient seen and examined, plan discussed with resident. Agree with above, we will follow closely outpt Jeanne f/u Plan discussed with: Patient ABEL OpheliaDIVINE RESIDENT Feb 21, 2025 15:25 JERE ABEBE MD Feb 21, 2025 17:09
[2025-02-21] MEDS ORDERED: CIPROFLOXACIN 0.3%OPTH(EYE) SOL 5ML EACHEYE SCH (22:00)
== END 2025-02-21 15:53 | disposition home health service (06) | DRG 189 ==
LOC: EDUNIT# 02:46 → EDBD 02:46 → ER 02:46 → OVERFLOW 05:53 → TELE-EAST 18:35
PROVIDERS: ADMIT Nurse Practitioner Family; ATTEND Nurse Practitioner Family
DX: J96.01 Acute respiratory failure with hypoxia (principal); J15.69 Pneumonia due to other Gram-negative bacteria; J15.9 Unspecified bacterial pneumonia; N17.0 Acute kidney failure with tubular necrosis; G93.41 Metabolic encephalopathy; I50.23 Acute on chronic systolic (congestive) heart failure; I42.9 Cardiomyopathy, unspecified; C85.90 Non-Hodgkin lymphoma, unspecified, unspecified site; J44.0 Chronic obstructive pulmonary disease with (acute) lower respiratory infection; I13.0 Hypertensive heart and chronic kidney disease with heart failure and stage 1 through stage 4 chronic kidney disease, or unspecified chronic kidney disease; J70.0 Acute pulmonary manifestations due to radiation; E11.22 Type 2 diabetes mellitus with diabetic chronic kidney disease; N18.9 Chronic kidney disease, unspecified; D69.6 Thrombocytopenia, unspecified; D63.8 Anemia in other chronic diseases classified elsewhere; E11.42 Type 2 diabetes mellitus with diabetic polyneuropathy; E78.5 Hyperlipidemia, unspecified; Z20.822 Contact with and (suspected) exposure to COVID-19; I25.10 Atherosclerotic heart disease of native coronary artery without angina pectoris; E87.6 Hypokalemia; N40.0 Benign prostatic hyperplasia without lower urinary tract symptoms; Y84.2 Radiological procedure and radiotherapy as the cause of abnormal reaction of the patient, or of later complication, without mention of misadventure at the time of the procedure; Z85.71 Personal history of Hodgkin lymphoma; Z79.899 Other long term (current) drug therapy; Z79.1 Long term (current) use of non-steroidal anti-inflammatories (NSAID); Z87.891 Personal history of nicotine dependence; Z92.3 Personal history of irradiation; Z82.49 Family history of ischemic heart disease and other diseases of the circulatory system; Z92.21 Personal history of antineoplastic chemotherapy; Y92.89 Other specified places as the place of occurrence of the external cause
CPT/HCPCS: 36415; 36600; 71045; 71250; 76775; 80048; 80053; 81001; 82306; 82570; 82728; 82805; 82962; 83036; 83540; 83550; 83605; 83735; 83880; 83970; 84100; 84156; 85025; 85610; 85730; 87040; 87426; 87804; 93005; 94640; 96361; 96365; 96368; 96375; 99291; G0378; J1756; J1815; J2003; J2470

== ENCOUNTER 2025-03-30 06:10 | Day surgery (SDC) | payer OTHER ==
[~2025-03-30] VITALS: Ht 167.6 cm; Wt 56.7 kg
[~2025-03-30 06:10] MED LIST changes: -AMLO1TAB22 PO; +EMPA1TAB PO; -ENAL1TAB48 PO; -FURO20TA3 PO; +PREG50CA PO
[2025-03-30] MEDS: ceFAZolin 2 GM/D5W50ml 50 ML IV ONE (06:32)
[2025-03-30] MEDS: HEPARIN SODIUM (PORCINE) 5000 UNITS/ML 1ML VIAL ONE (07:08)
[2025-03-30] MEDS: LIDOCAINE 1%-Mpf/Epinephrine 1:200,000 30ml VIAL ONE (07:09)
[2025-03-30] MEDS ORDERED: ETOMIDATE (2MG/ML) 20ML VIAL IV ONE (07:13)
[2025-03-30] MEDS ORDERED: MIDAZOLAM HCL 2MG/2ML 2ml VIAL (1mg/ml) ONE (07:13)
[2025-03-30] MEDS ORDERED: fentaNYL CITRATE 100 MCG/2 ML VL ONE (07:13)
[2025-03-30] MEDS ORDERED: LIDOCAINE 1% INJ PF 5ML AMP ONE (07:14)
[2025-03-30] MEDS ORDERED: METOCLOPRAMIDE HCL 5MG/ml INJ 2ml VIAL ONE (07:14)
[2025-03-30] MEDS ORDERED: ROCURONIUM 10MG/ML 10ML VIAL IV ONE (07:14)
[2025-03-30] MEDS ORDERED: ONDANSETRON HCL 4 MG/2 ML VIAL ONE (07:14)
[2025-03-30] MEDS: cefOXitin 2GM/100ML 100 ML IV ONE (07:15)
[2025-03-30] MEDS: HEPARIN SODIUM (PORCINE) 5000 UNITS/ML 1ML VIAL SC ONE (07:15)
[2025-03-30] MEDS ORDERED: ONDANSETRON HCL 4 MG/2 ML VIAL IV ONE (07:30)
[2025-03-30] MEDS ORDERED: hydrALAZINE HCL 20 MG/ML VL IV PRN (07:30)
[2025-03-30] MEDS ORDERED: HYDROmorphone HCL 2 MG/ML VL/or syr IV PRN (07:30)
[2025-03-30] MEDS ORDERED: METOCLOPRAMIDE HCL 5MG/ml INJ 2ml VIAL IV PRN (07:30)
[2025-03-30] MEDS: BUPIVACAINE 0.5% MPF INJ 30ML SDV IJ ONE (07:55)
[2025-03-30] MEDS: LIDOCAINE 1% HCL (LOCAL ANESTH.) INJ 20ML MDV ONE (07:56)
[2025-03-30] MEDS ORDERED: ePHEDrine SULFATE 50 MG/ML AMP ONE (07:58)
[2025-03-30] MEDS ORDERED: SUGAMMADEX 200mg/2ml Vial (100MG/ML) IV ONE (08:00)
[2025-03-30 08:25] VITALS: PULSE 80; RESP 12; TEMP 98.5; O2SAT 92
[2025-03-30] MEDS: ACETAMINOPHEN IV 1000 MG/100ML (10MG/ML) IV ONE (08:39)
[2025-03-30 08:40] VITALS: PULSE 76; RESP 14; O2SAT 94
[2025-03-30 09:25] VITALS: BP 114/61; PULSE 65; RESP 13; O2SAT 95
--- NOTE | 2025-03-30 09:44 | DVHOP ---
DATE OF SURGERY: 03/30/2025 PREOPERATIVE DIAGNOSES: * Intra-abdominal mass. * History of lung cancer. * Non-Hodgkin's lymphoma. POSTOPERATIVE DIAGNOSES: * Intra-abdominal mass. * History of lung cancer. * Non-Hodgkin's lymphoma. PROCEDURE: Diagnostic laparoscopy, laparoscopic biopsy of mesenteric mass. SURGEON: Son Moe MD RIDES SUPERVISOR: None. ANESTHESIOLOGIST: Rian Reed CRNA ANESTHESIA: General by means of endotracheal intubation. INTRAOPERATIVE FINDINGS: Isolated mesenteric mass in the root of the mesentery of the small bowel . No evidence of any other abnormalities. No evidence of bowel obstruction. ESTIMATED BLOOD LOSS: Minimal. IV FLUIDS: Per anesthesia charting. URINE OUTPUT: Not recorded given Mejía catheter was not inserted. DRAINS: None. IMPLANTS: None. SPECIMENS: Mesenteric mass sent for microscopic evaluation as well as flow cytometry. COMPLICATIONS: None. Procedure well tolerated and transferred to recovery room in stable condition. INDICATIONS FOR PROCEDURE: The patient is a 79-year-old male with a history of lung cancer as well as non-Hodgkin's lymphoma, who underwent a CT scan to identify a mesenteric mass. Therefore, he was recommended to undergo a diagnostic laparoscopy, possible bowel resection, possible biopsy. The procedure, risks, and benefits were explained in a detailed and extensive fashion. All questions were answered. He understood and agreed to proceed. DESCRIPTION OF PROCEDURE: The patient was taken to the operating room and placed in the dorsal decubitus position on the operating room table. Once adequate anesthesia was achieved, both arms were tucked to her side, paying careful attention on providing adequate positioning as well as padding to prevent any potential injury to the abdomen. It was then widely clipped from all hairs surrounding the surgical field. It was then widely prepped and draped in the usual sterile fashion. The patient received prophylactic antibiotics as well as prophylactic heparin. My attention was directed towards the periumbilical region, where local anesthesia consisting of 1% lidocaine/0.5% Marcaine was infiltrated. The abdominal wall was retracted anteriorly and a Veress needle was inserted into the abdominal cavity via the base of the umbilicus. Pneumoperitoneum of 15 mmHg was achieved. My attention was then directed towards the supraumbilical region where a 5 mm trocar was placed. A 5 mm 30-degree laparoscope was inserted into the abdominal cavity. A thorough survey of the abdominal cavity did not reveal any evidence of injury or bleeding upon entry. The Veress needle was removed under direct laparoscopic visualization. At this time, my attention was directed towards the left side of the abdomen, where 5-mm trocars x 2 were placed. Using graspers, the ligament of Treitz was identified. The small bowel was run to the ileocecal valve, finding no bowel abnormalities. However, during the transit, a mesenteric mass was identified in the root of the mesentery of the small bowel. This was clinically consistent with lymphoma. At this time, a specimen was obtained with EndoShears and a laparoscopic biopsy spoon forceps. Two specimens were obtained from the same mass, one sent for flow cytometry and the other one for microscopic evaluation. Hemostasis was achieved with the monopolar electrocautery connected to the EndoShears. The abdominal cavity was inspected. There was no evidence of bleeding or injury to surrounding structures. The pneumoperitoneum was evacuated and the laparoscopic equipment was removed from the patient. The skin was closed with 4-0 Monocryl in a subcuticular fashion. The wounds were washed and dried and sterile dressings were applied. The patient tolerated well the procedure. There were no complications. The patient was successfully extubated in the operating room and transferred to the recovery room in stable condition. MD PRESTON Hayden/RAYMOND/BENJIE TID: [id number] RECEIPT: [id number]
== END 2025-03-30 09:35 | disposition home or self-care (01) ==
LOC: SUR 06:10
DX: C85.90 Non-Hodgkin lymphoma, unspecified, unspecified site (principal); R19.09 Other intra-abdominal and pelvic swelling, mass and lump; I10 Essential (primary) hypertension; E11.9 Type 2 diabetes mellitus without complications; E78.00 Pure hypercholesterolemia, unspecified; J44.9 Chronic obstructive pulmonary disease, unspecified; Z79.899 Other long term (current) drug therapy; Z96.653 Presence of artificial knee joint, bilateral; Z95.811 Presence of heart assist device; Z85.118 Personal history of other malignant neoplasm of bronchus and lung; Z98.890 Other specified postprocedural states
CPT/HCPCS: 49321; 82962; 88305; J0690; J0694; J1644; J2003; J2250; J2405; J2765; J3010; J3490; J7030; J0131

== ENCOUNTER 2025-06-29 08:40 | Day surgery (SDC) | payer OTHER ==
[~2025-06-29] VITALS: Ht 167.6 cm; Wt 56.7 kg
[2025-06-29] MEDS: HEPARIN SODIUM (PORCINE) 5000 UNITS/ML 1ML VIAL SC ONE (09:20)
[2025-06-29] MEDS ORDERED: HEPARIN SODIUM (PORCINE) 5000 UNITS/ML 1ML VIAL ONE (09:24)
[2025-06-29] MEDS ORDERED: BUPIVACAINE 0.5% MPF INJ 30ML SDV IJ ONE (09:29)
[2025-06-29] MEDS ORDERED: SUCCINYLCHOLINE CHLORIDE 20 MG/ML 10ML VIAL IV ONE (09:37)
[2025-06-29] MEDS ORDERED: fentaNYL CITRATE 100 MCG/2 ML VL ONE (09:39)
[2025-06-29] MEDS ORDERED: PROPOFOL 10 MG/ML 20 ML IV ONE (09:39)
[2025-06-29] MEDS ORDERED: HYDROmorphone HCL 2 MG/ML VL/or syr ONE (09:39)
[2025-06-29] MEDS ORDERED: ONDANSETRON HCL 4 MG/2 ML VIAL ONE (10:07)
[2025-06-29] MEDS ORDERED: SUGAMMADEX 200mg/2ml Vial (100MG/ML) IV ONE (10:13)
[2025-06-29] MEDS: BUPIVACAINE 0.5% INJ 50ML VIAL IJ ONE (10:15)
[2025-06-29] MEDS: LIDOCAINE 1% HCL (LOCAL ANESTH.) INJ 20ML MDV ONE (10:15)
[2025-06-29 10:23] VITALS: PULSE 99; RESP 15; TEMP 97.8; O2SAT 94
[2025-06-29 10:30] VITALS: PULSE 95; RESP 11; O2SAT 95
[2025-06-29] MEDS ORDERED: ACETAMINOPHEN IV 1000 MG/100ML (10MG/ML) IV PRN (10:30)
[2025-06-29] MEDS ORDERED: HYDROmorphone HCL 2 MG/ML VL/or syr IV PRN (10:30)
[2025-06-29] MEDS ORDERED: ONDANSETRON HCL 4 MG/2 ML VIAL IV PRN (10:30)
--- NOTE | 2025-06-29 11:00 | DVHOP ---
DATE OF SURGERY: 06/29/2025 PREOPERATIVE DIAGNOSES: * Mesenteric mass. * History of lung cancer, Hodgkin's and non-Hodgkin's lymphoma. POSTOPERATIVE DIAGNOSES: * Mesenteric mass. * History of lung cancer, Hodgkin's and non-Hodgkin's lymphoma. PROCEDURE: Explanatory laparotomy with mesenteric mass biopsy. SURGEON: Son Moe MD PET HANDLER: None. ANESTHESIOLOGIST: Dr. Briggs. ANESTHESIA: General by means of endotracheal intubation. INTRAOPERATIVE FINDINGS: A 3.5-4 cm mesenteric mass. ESTIMATED BLOOD LOSS: Minimal. IV FLUIDS: Per anesthesia charting. URINE OUTPUT: Not recorded given Mejía catheter was not inserted. DRAINS: None. IMPLANTS: None. SPECIMENS: Metastatic mass sent for microscopic evaluation as well as flow cytometry. COMPLICATIONS: None. Procedure well tolerated and transferred to recovery room in stable condition. INDICATIONS FOR PROCEDURE: The patient is a 79-year-old male with a history of lung cancer, Hodgkin's lymphoma as well as non-Hodgkin's lymphoma, who underwent a CT scan and PET scan of the abdomen and pelvis revealing evidence of a mesenteric mass. Given the above-mentioned information, he underwent a laparoscopic biopsy. Unfortunately, the tissue obtained was not diagnostic. Therefore, he was recommended to undergo an exploratory laparotomy with biopsy of the mass. The procedures, risks and benefits were explained in detail in an extensive fashion. The patient had no questions at the time and he understood and agreed to proceed. DESCRIPTION OF PROCEDURE: The patient was taken to the operating room and placed in the dorsal decubitus position on the operating room table. Once adequate anesthesia was achieved, the abdomen was widely prepped and draped in the usual sterile fashion. The patient received prophylactic antibiotics as well as prophylactic heparin. My attention was directed directly to the supraumbilical midline region where a midline incision was made after injecting 1% lidocaine/ 0.25% Marcaine. The subcutaneous tissue and fascia were incised to the full extent of the skin incision, gaining access to the peritoneal layer. The peritoneal layer was retracted anteriorly and incised with Metzenbaum scissors, gaining access to the peritoneal cavity. The peritoneal layer was incised to the full extent of the skin incision with electrocautery while providing anterior abdominal wall retraction to avoid injury to internal organs. The mesenteric mass was identified. It measured approximately 3.5-4 cm. It was located in the root of the mesentery of the small bowel. The peritoneal layer overlying the mesenteric mass was carefully scored with electrocautery. A large lymph node was identified. Given the likely event of this lesion having significant vasculature, I decided to perform a partial excision of the lymph node. This was performed with a #15 blade. 2 segments were obtained, one for flow cytometry and the other one for microscopic evaluation. Hemostasis was achieved with electrocautery. There was no evidence of active bleeding or injury to any surrounding structure. The mobile was returned to the abdominal cavity. The fascia was then closed with double-stranded 0 PDS suture x 2. The wounds were washed and dried. The skin was closed with ariella. The patient tolerated well the procedure. There were no complications. He was successfully extubated in the operating room and transferred to the recovery room in stable condition. Son Moe MD WBR/EKT TID: [id number] RECEIPT: [id number]
[2025-06-29 11:20] VITALS: BP 142/93; PULSE 83; RESP 16; O2SAT 95
== END 2025-06-29 11:35 | disposition home or self-care (01) ==
LOC: SUR 08:40
DX: D48.7 Neoplasm of uncertain behavior of other specified sites (principal); C34.90 Malignant neoplasm of unspecified part of unspecified bronchus or lung; C81.90 Hodgkin lymphoma, unspecified, unspecified site; Z85.118 Personal history of other malignant neoplasm of bronchus and lung; J44.9 Chronic obstructive pulmonary disease, unspecified; I10 Essential (primary) hypertension; E11.9 Type 2 diabetes mellitus without complications; Z79.899 Other long term (current) drug therapy; Z98.890 Other specified postprocedural states
CPT/HCPCS: 38500; 86850; 86870; 86900; 86901; 86905; 88305; 88342; A4315; J0330; J1171; J1644; J2003; J2405; J2704; J3010; J3490

== ENCOUNTER 2025-10-17 16:57 | Emergency (ER) | payer OTHER ==
[~2025-10-17] VITALS: Ht 177.8 cm; Wt 81.8 kg
[2025-10-17 17:12] VITALS: BP 130/76; RESP 18; TEMP 98.8
[2025-10-17 17:14] VITALS: O2SAT 97
--- NOTE | 2025-10-17 17:58 | ECG ---
[facility] Test Date: 2025-10-17 Test Time: 17:03:26 Pat Name: MARLEY DENISE Department: [facility] ED Patient ID: [id number] Room: Gender: M Human Resources Manager Manufacturing: : 1945 Requested By: EMERGENCY EMERGENCY Order Number: [id number] Reading MD: Ran Mattson Measurements Intervals [place] Rate: 93 P: -5 MO: 167 QRS: -60 QRSD: 109 T: 49 QT: 347 QTc: 432 Interpretive Statements Sinus rhythm Probable left atrial enlargement Left anterior fascicular block Abnormal R-wave progression, late transition Electronically Signed On 10-19-2025 10:32:23 PST by Ran Mattson Please click the below link to view image of tracing.
[2025-10-17] MEDS ORDERED: ONDANSETRON HCL 4 MG/2 ML VIAL IV ONE (18:15)
[2025-10-17] MEDS ORDERED: SODIUM CHLORIDE 0.9% 1,000 ML IV ONE (18:15)
--- NOTE | 2025-10-17 18:45 | ED.PDOC ---
HPI (NEURO) HPI Comments 80y M who presents to the ED for chief complaint of generalized weakness. Pt presents with who states pt had started new chemo treatment today for Hodgkin lymphoma. Pt states after infusion today, he started to have weakness and malaise and felt weak all day and came to the ED for evaluation. Pt in the ED, is alert and oriented x 4 and noted to be placed on supplemental 02 with stable vitals. Pt otherwise denies any other symptoms at this time. Chief Complaint: General Weakness Time Seen by MD: 18:48 Primary Care Provider: NATE Reviewed Notes: Medications, Allergies Information Source: Patient, Emergency Med Personnel Mode of Arrival: EMS Brought in by: EMS Past Medical History PAST MEDICAL HISTORY: Cancer, CHF, High Lipids, HTN Surgical History: Denies all surgeries Family History Family History: Reviewed,noncontributory to illness Social History Smoker: Non-Smoker Alcohol: Denies ETOH Use Drugs: Denies Drug Use Lives In: Home Constitutional: reports: fatigue, malaise, weakness; denies: chills, diaphoresis, fever, sweats, others EENTM: denies: blurred vision, double vision, ear bleeding, ear discharge, ear drainage, ear pain, ear ringing, eye pain, eye redness, hearing loss, mouth pain, mouth swelling, nasal discharge, nose bleeding, nose congestion, nose pain, photophobia, tearing, throat pain, throat swelling, voice changes, others Respiratory: denies: cough, hemoptysis, orthopnea, SOB at rest, shortness of breath, SOB with excertion, stridor, wheezing, others Cardiovascular: denies: chest pain, dizzy spells, diaphoresis, Dyspnea on exertion, edema, irregular heart beat, left arm pain, lightheadedness, palpitations, PND, syncope, others Gastrointestinal: denies: abdomen distended, abdominal pain, blood streaked bowels, constipated, diarrhea, dysphagia, difficulty swallowing, hematemesis, melena, nausea, poor appetite, poor fluid intake, rectal bleeding, rectal pain, vomiting, others Genitourinary: denies: burning, dysuria, flank pain, frequency, hematuria, incontinence, penile discharge, penile sore, pain, testicle pain, testicle swelling, urgency, others Neurological: denies: dizziness, fainting, headache, left sided numbness, left sided weakness, numbness, paresthesia, pre-existing deficit, right sided numbness, right sided weakness, seizure, speech problems, tingling, tremors, weakness, others Musculoskeletal: denies: back pain, gout, joint pain, joint swelling, muscle pain, muscle stiffness, neck pain, others Integumetry: denies: bruises, change in color, change in hair/nails, dryness, laceration, lesions, lumps, rash, wounds, others Allergic/Immunocompromised: denies: Difficulty Healing, Frequent Infections, Hives, Itching, others Hematologic/Lymphatic: denies: anemia, blood clots, easy bleeding, easy bruising, swollen glands, others Endocrine: denies: excessive hunger, excessive sweating, excessive thirst, excessive urination, flushing, intolerance to cold, intolerance to heat, unexplained weight gain, unexplained weight loss, others Psychiatric: denies: anxiety, bipolar disorder, depression, hopeless, panic d isorder, schizophrenia, sleepless, suicidal, others All Other Systems: Reviewed and Negative Physical Exam General Appearance: Mild Distress, Normal HEENT: Normal ENT Inspection, PERRL/EOMI Neck: Full Range of Motion, Non-Tender, Normal, Normal Inspection Respiratory: Chest Non-Tender, Lungs Clear, No Accessory Muscle Use, No Respiratory Distress, Normal Breath Sounds Cardiovascular: No Edema, No JVD, No Murmur, No Gallop, Normal Peripheral Pulses, Regular Rate/Rhythm Breast Exam: Deferred Gastrointestinal: No Organomegaly, Non Tender, No Pulsatile Mass, Normal Bowel Sounds, Soft Genitalia: Deferred Pelvic: Deferred Rectal: Deferred Extremities: No calf tenderness, Normal capillary refill, Normal inspection, Normal range of motion, Non-tender, No pedal edema Neurologic: Alert, 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 Was a procedure done?: No Differential Diagnosis (SZ) General Weakness: Anemia, Dehydration, Electrolyte imbalance, Encephalopathy, Hypotension, Hypovolemia, Vertigo: central, Vertigo: peripheral X-Ray, Labs, Meds, VS Vital Signs Date Time Temp Pulse Resp B/P (MAP) Pulse Ox O2 Delivery O2 Flow Rate FiO2 10/17/25 19:48 93 10/17/25 17:14 97 Nasal Cannula* 2 28 10/17/25 17:12 98.8 97 18 130/76 95 98.8 10/17/25 17:03 93 Lab Test 10/17/25 18:35 10/17/25 18:21 Range/Units White Blood Count 10.0 4.4-10.8 10^3/uL Red Blood Count 5.19 4.5-5.90 10^6/uL Hemoglobin 13.2 L 13.5-17.5 g/dL Hematocrit 40.8 L 41.0-53.0 % Mean Corpuscular Volume 78.7 L 80.0-100.0 fL Mean Corpuscular Hemoglobin 25.4 L 28.0-32.0 pg Mean Corpuscular Hemoglobin Concent 32.3 32.0-36.0 g/dL Red Cell Distribution Width 17.5 H 11.8-14.3 % Platelet Count 131 L 140-450 10^3/uL Mean Platelet Volume 8.6 6.9-10.8 fL Neutrophils (%) (Auto) 82.9 H 37.0-80.0 % Lymphocytes (%) (Auto) 10.6 10.0-50.0 % Monocytes (%) (Auto) 5.6 0.0-12.0 % Eosinophils (%) (Auto) 0.8 0.0-7.0 % Basophils (%) (Auto) 0.1 0.0-2.0 % Neutrophils # (Auto) 8.3 1.6-8.6 10 ^3/uL Lymphocytes # (Auto) 1.1 0.4-5.4 10 ^3/uL Monocytes # (Auto) 0.6 0-1.3 10 ^3/uL Eosinophils # (Auto) 0.1 0-0.8 10 ^3/uL Basophils # (Auto) 0 0-0.2 10 ^3/uL Nucleated Red Blood Cells 0.1 % Sodium Level 141 136-145 mmol/L Potassium Level 4.7 3.5-5.1 mmol/L Chloride Level 105 98-107 mmol/L Carbon Dioxide Level 27 20-31 mmol/L Anion Gap 9 5-15 Blood Urea Nitrogen 15 9-23 mg/dL Creatinine 1.21 0.700-1.30 mg/dL Glomerular Filtration Rate Calc 61 >90 mL/min BUN/Creatinine Ratio 12.4 10.0-20.0 Serum Glucose 141 H 74-106 mg/dL Calcium Level 10.0 8.7-10.4 mg/dL Magnesium Level 1.9 1.6-2.6 mg/dL Total Bilirubin 0.7 0.2-1.0 mg/dL Aspartate Amino Transferase (AST) 12 L 13-40 U/L Alanine Aminotransferase (ALT) 13 7-40 U/L Alkaline Phosphatase 118 H 46-116 U/L Total Protein 6.7 5.7-8.2 g/dL Albumin 4.4 3.2-4.8 g/dL Urine Color Yellow Yellow Urine Clarity Clear Clear Urine pH 5.5 5.0-9.0 Urine Specific [place] 1.024 1.001-1.035 Urine Protein 1+ H Negative Urine Ketones Negative Negative Urine Blood Negative Negative /uL Urine Nitrite Negative Negative Urine Bilirubin Negative Negative Urine Urobilinogen Normal Negative mg/dL Urine Leukocyte Esterase Negative Negative /uL Urine RBC 1 0 - 3 /hpf Urine Microscopic WBC 1 0-3 /HPF Urine Squamous Epithelial Cells Few <5 /hpf Urine Bacteria None seen None Seen /hpf Urine Mucus Few None Seen Urine Glucose 4+ H Normal mg/dL [place] [id number] Ph: [phone] DIAGNOSTIC IMAGING Diagnostic Imaging Report : [id number] Signed PATIENT: MARLEY DENISE ACCT: [id number] UNIT: [id number] : 1945 LOC: ER ROOM / BED: / AGE / SEX: 80 / M ADM STATUS: REG ER SERVICE 952 ORDERING PHYSICIAN: BART FRANCO MD PROCEDURE(s): CXR2 - CHEST TWO VIEWS ROUTINE REASON: Lymphoma breathing started with chemotherapy ORDER NUMBER(s): [id number], ACCESSION NUMBER(s): [id number] XY CHEST TWO VIEWS ROUTINE CLINICAL HISTORY: Lymphoma breathing started with chemotherapy COMPARISON: None TECHNIQUE: Frontal and lateral view of the chest was obtained FINDINGS: Lines and Tubes: Right IJ approach port-A-Cath terminating over the distal SVC. Lungs: Left upper lung zone opacity. Pleura: No effusion. No pneumothorax. Cardiomediastinal contours: Unremarkable Bones: No acute osseous abnormality. IMPRESSION: Left upper lung zone opacity which may represent pneumonia /mass /atelectasis. ATED BY: KENYA PRINCE DO DICTATED DATE/TIME: 10/17/251925 SIGNED BY: KENYA PRINCE DO SIGNED DATE/TIME: 10/17/251925 CC: X-Ray, Labs, Meds, VS Comment Course in the emergency department eventful Patient came in of the receiving Keytruda and started vomiting and a became very weak CBC is normal CMP is negative Chest x-ray shows a left upper lobe opacity which could be a pneumonia or mass Patient we will be discharged home to follow up with the oncologist Time of 1ST Reevaluation: 19:20 Reevaluation 1ST: Unchanged Time of 2ND Reevaluation: 19:41 Reevaluation 2ND: Unchanged Consultation: PCP, Other (Oncologist) Patient Education/Counseling: Diagnosis, Treatment, Prognosis, Need For Follow Up Family Education/Counseling: Diagnosis, Treatment, Prognosis, Need For Follow Up, No Family Present Departure 1 Departure Time of Disposition: 19:44 Impression: Primary Impression: Hodgkin lymphoma Qualified Codes: C81.93 - Hodgkin lymphoma, unspecified, intra-abdominal lymph nodes Additional Impression: Pneumonia Qualified Codes: J18.9 - Pneumonia, unspecified organism Disposition: HOME / SELF CARE / HOMELESS Condition: Fair Additional Instructions: Push for weeds and follow up with her PCP e-Prescriptions Cefdinir (Cefdinir) 300 Mg Cap 1 CAP PO BID for 10 Days, #20 CAP Prov: BART FRANCO MD 10/17/25 Ondansetron Odt 4MG Tab (ZOFRAN PO) 4 Mg Tb 4 MG PO QID for 10 Days, #40 TAB ODT TAB-DISSOLVE IN MOUTH, THEN SWALLOW Prov: BART FRANCO MD 10/17/25 Discharged With: Self, Relative, Spouse Critical Care Note Critical Care Time?: No Stability Stability form required: No Heart Score Heart Score: Heart Score Response (Comments) Value History N/A 0 EKG Repolarization Disturb 1 Age >65 2 Risk Factors >3 or Hx ASHD 2 Troponin N/A 0 Total 5 I personally scribed for BART FRANCO MD ([email or web address]) on 10/17/25 at 18:45. Electronically submitted by Roderick Nunez ([facility] I personally scribed for BART FRANCO MD ([email or web address]) on 10/17/25 at 18:49. Electronically submitted by Roderick Nunez ([email or web address]). I personally scribed for BART FRANCO MD ([email or web address]) on 10/17/25 at 19:35. Electronically submitted by Roderick Nunez ([email or web address] BART FRANCO MD Oct 17, 2025 18:45
[2025-10-17 19:01] LABS: Hematocrit 40.8 % (41.0-53.0); Hemoglobin 13.2 g/dL (13.5-17.5)
[2025-10-17 19:02] LABS: Mean Corpuscular Hemoglobin 25.4 pg (28.0-32.0); Mean Corpuscular Volume 78.7 fL (80.0-100.0); Nucleated Red Blood Cells % 0.1 %
[2025-10-17 19:09] LABS: Alanine Aminotransferase 13 U/L (7-40); Albumin 4.4 g/dL (3.2-4.8); Anion Gap 9 (5-15); BUN/Creatinine Ratio 12.4 (10.0-20.0); Blood Urea Nitrogen 15 mg/dL (9-23); Calcium 10.0 mg/dL (8.7-10.4); Carbon Dioxide 27 mmol/L (20-31); Chloride 105 mmol/L (98-107); Magnesium 1.9 mg/dL (1.6-2.6); Potassium 4.7 mmol/L (3.5-5.1); Sodium 141 mmol/L (136-145); Total Protein 6.7 g/dL (5.7-8.2)
[2025-10-17 19:10] LABS: Bilirubin, Total 0.7 mg/dL (0.2-1.0)
[2025-10-17 19:11] LABS: Alkaline Phosphatase 118 U/L (46-116); Glucose 141 mg/dL (74-106)
--- NOTE | 2025-10-17 19:28 | DVH ---
XY CHEST TWO VIEWS ROUTINE CLINICAL HISTORY: Lymphoma breathing started with chemotherapy COMPARISON: None TECHNIQUE: Frontal and lateral view of the chest was obtained FINDINGS: Lines and Tubes: Right IJ approach port-A-Cath terminating over the distal SVC. Lungs: Left upper lung zone opacity. Pleura: No effusion. No pneumothorax. Cardiomediastinal contours: Unremarkable Bones: No acute osseous abnormality. IMPRESSION: Left upper lung zone opacity which may represent pneumonia /mass /atelectasis.
[2025-10-17 19:48] VITALS: PULSE 93
[2025-10-17] MEDS ORDERED: CEFD300C2 PO (19:48)
[2025-10-17] MEDS ORDERED: ZOFR4T PO (19:48)
[2025-10-17 22:00] LABS: Urine Protein, UAD 1+ (Negative)
== END 2025-10-17 20:21 | disposition home or self-care (01) ==
LOC: ER 16:57 → EDBD 16:57 → ER 20:21
DX: C81.93 Hodgkin lymphoma, unspecified, intra-abdominal lymph nodes (principal); J18.9 Pneumonia, unspecified organism; I10 Essential (primary) hypertension; Z79.899 Other long term (current) drug therapy
CPT/HCPCS: 36415; 71046; 80053; 81001; 83735; 85025; 93005